=== PATIENT | male | born 1945 | race Hispanic/Latino ===

== ENCOUNTER 2017-04-29 12:11 | Emergency (ER) | payer MEDICARE, BC ==
[~2017-04-29] VITALS: Ht 154.4 cm; Wt 80.3 kg
[~2017-04-29 12:11] MED LIST: CHLORZOXAZONE; LANTUS; Z.0.LISINOPRIL20 MG PO; Z.0.LOVASTATIN40 MG PO; Z.0.SERTRALINE HCL10 PO; Z.1.HYDROCODON-ACE1 PO; Z.1.METFORMIN HCL100 PO
== END 2017-04-29 17:26 | disposition home or self-care (01) ==
LOC: ER 12:17
DX: Z48.01 Encounter for change or removal of surgical wound dressing (principal); M79.671 Pain in right foot; E11.65 Type 2 diabetes mellitus with hyperglycemia
CPT/HCPCS: 99282

== ENCOUNTER 2017-08-18 12:32 | Inpatient (IN) | payer MEDICARE, BC ==
[~2017-08-18] VITALS: Ht 154.4 cm; Wt 80.0 kg
--- OUTSIDE RECORDS SUMMARY | 2017-08-18 12:35 | XMS REPORT ---
Author Author [facility] Address Unknown Phone Unavailable Care Team Providers Care Printing Gray Cloth Tender Name Role Phone ROSALIO HENLEY Unavailable Unavailable Problems This patient has no known problems. Allergies, Adverse Reactions, Alerts This patient has no known allergies or adverse reactions. Medications This patient has no known medications. Results Test Description Test Time Test Comments Text Results Atomic Results Result Comments IR CONSULT [place] [address] Patient Name: AMAURY DE LEON MR #: [id number] : 1945 Age/Sex: 71/M Req # : [id number] Adm Physician: ROSALIO HENLEY MD Ordered by: SEBASTIAN SIDDIQI, JOSEMANUEL SIDDIQI Report #: [id number] Location: [facility] Room/Bed: [facility] _ Procedure: [id number] DX/IR CONSULT Exam Date: Exam Time: REPORT STATUS: Signed Tunneled Dialysis Catheter Placement March 23, 2017 Pre-Procedure Diagnosis: End-Stage Renal Disease Post- procedure Diagnosis:End-Stage Renal Disease Farm Mortgage Agent: Aparna Mariscal Alarm Mechanic: None Sedation: Moderate sedation was provided with intravenous fentanyl and Versed. Heart rate, rhythm and oxygen saturation were monitored and real-time by a dedicated interventional radiology nurse under my direct supervision. Blood pressure was monitored in 5 minute increments. 1% lidocaine was used for local anesthesia. Total sedation time: 30 minutes Radiation Dose: 441.7 cGycm2 (Dose Area Product) Fluoroscopy time: 1.8 minutes Estimate blood loss: <5 mL Blood administered: None Complications : None Implants/Grafts: 14.5 Persian 19 cm cuffed tunneled dialysis catheter Specimen: None Procedure: Informed consent was obtained and the patient positioned supine in the fluoroscopy suite. A timeout was performed, followed by preliminary ultrasound of the right internal jugular vein (see findings below). The right neck and chest were prepped and draped in standard fashion. Using real-time ultrasound guidance a 18 gauge vascular needle was used to access the right internal jugular vein. An image was stored in the electronic medical record. A wire was advanced across the right atrium under fluoroscopy and the needle exchanged for a peel-away sheath. A skin incision was made inferior to the clavicle and the catheter tunneled to the access site. The catheter was then deployed through the peel-away sheath and positioned with the tip at the atriocaval junction/right atrium. At the end of the procedure the catheter was flushed, packed with heparin solution, secured to the skin and a sterile dressing applied. The patient tolerated the procedure well and without immediate complication. Findings: Patent right internal jugular vein as demonstrated by normal ultrasound compressibility. Impression: Successful placement of a tunneled right internal jugular vein dialysis catheter using ultrasound and fluoroscopic guidance under moderate sedation. This report was generated with voice-recognition technology. Errors in technical writing lead/mgr can occur. Please interpret accordingly and contact a radiologist if there are any questions regarding the report. Signed by: Dr. Garrick Mariscal M.D. on 03/26/2017 7: 23 AM Dictated By: GARRICK MARISCAL MD 2 Transcribed By: HO on 03/26/17722 COPY TO: JOSEMANUEL CORTES SPECIAL PROCEDURE IN ELECTRIC SIGN WIRER [place] [address] Patient Name: AMAURY DE LEON MR #: [id number] : 1945 Age/Sex: 71/M Req #: [id number] Adm Physician: ROSALIO HENLEY MD Ordered by: JOSEMANUEL CORTES MD, MD Report #: [id number] Location: MED/SURG3 Room/Bed: [facility] Procedure: [id number] IR/SPECIAL PROCEDURE IN ELECTRIC SIGN WIRER Exam Date: Exam Time: REPORT STATUS: Signed Tunneled Dialysis Catheter Placement March 23, 2017 Pre- Procedure Diagnosis: End-Stage Renal Disease Post-procedure Diagnosis:End- Stage Renal Disease Farm Mortgage Agent: Aparna Mariscal Alarm Mechanic: None Sedation: Moderate sedation was provided with intravenous fentanyl and Versed. Heart rate, rhythm and oxygen saturation were monitored and real-time by a dedicated interventional radiology nurse under my direct supervision. Blood pressure was monitored in 5 minute increments. 1% lidocaine was used for local anesthesia. Total sedation time: 30 minutes Radiation Dose: 441.7 cGycm2 (Dose Area Product) Fluoroscopy time: 1.8 minutes Estimate blood loss: <5 mL Blood administered: None Complications: None Implants/Grafts: 14.5 Persian 19 cm cuffed tunneled dialysis catheter Specimen: None Procedure: Informed consent was obtained and the patient positioned supine in the fluoroscopy suite. A timeout was performed, followed by preliminary ultrasound of the right internal jugular vein (see findings below). The right neck and chest were prepped and draped in standard fashion. Using real- time ultrasound guidance a 18 gauge vascular needle was used to access the right internal jugular vein. An image was stored in the electronic medical record. A wire was advanced across the right atrium under fluoroscopy and the needle exchanged for a peel-away sheath. A skin incision was made inferior to the clavicle and the catheter tunneled to the access site. The catheter was then deployed through the peel-away sheath and positioned with the tip at the atriocaval junction/right atrium. At the end of the procedure the catheter was flushed, packed with heparin solution, secured to the skin and a sterile dressing applied. The patient tolerated the procedure well and without immediate complication. Findings: Patent right internal jugular vein as demonstrated by normal ultrasound compressibility. Impression: Successful placement of a tunneled right internal jugular vein dialysis catheter using ultrasound and fluoroscopic guidance under moderate sedation. This report was generated with voice-recognition technology. Errors in technical writing lead/mgr can occur. Please interpret accordingly and contact a radiologist if there are any questions regarding the report. Signed by: Dr. Garrick Mariscal M.D. on 03/26/2017 7:23 AM Dictated By: GARRICK MARISCAL MD 2 Transcribed By: HO on 03/26/17722 COPY TO: CORTESJOSEMANUEL FOOT RIGHT COMPLETE [place] [address] Patient Name: AMAURY DE LEON MR #: [id number] : 1945 Age/Sex: 71/M Req #: [id number] Adm Physician: ROSALIO HENLEY MD Ordered by: ALIA FENTON DPM Report #: [id number] Location: [facility]/SURG3 Room/Bed: [facility] Procedure: [id number] DX/FOOT RIGHT COMPLETE Exam Date: Exam Time: 1015 REPORT STATUS: Signed PROCEDURE: X-RAY RIGHT FOOT, COMPLETE COMPARISON: None. INDICATIONS: FOOT INFECTION 4TH AND 5TH DIGIT FINDINGS: No acute, displaced fracture or dislocation. No cortical erosive or destructive changes of the bones of the fourth or fifth digit. Joint spaces are relatively well-maintained. Degenerative plantar and posterior calcaneal spur. Atherosclerotic vascular calcifications. CONCLUSION: No acute osseous abnormality. No plain radiographic evidence of osteomyelitis involving the fourth or fifth digits. If there is strong clinical concern, three-phase nuclear medicine bone scan or MRI of the forefoot with and without contrast may be obtained for more sensitive evaluation for osteomyelitis. Dictated by: Dawood Ledesma M.D. on 03/20/2017 at 10:51 Electronically approved by: Dawood Ledesma M.D. on 03/20/2017 at 10:51 Dictated By: DAWOOD LEDESMA MD 1051 Transcribed By: NICO on 03/20/17 1051 COPY TO: ALIA FENTON DPM US RENAL RETROPERITONEAL COMP [place] [address] Patient Name: AMAURY DE LEON MR #: [id number] : 1945 Age/Sex: 71/M Req #: [id number] Adm Physician: ROSALIO HENLEY MD Ordered by: SEBASTIAN SIDDIQI, JOSEMANUEL SIDDIQI Report #: [id number] Location: [place] [address] Room/Bed: [facility] Procedure: [id number] US/US RENAL RETROPERITONEAL COMP Exam Date: 03/20/17 Exam Time: 1051 REPORT STATUS: Signed PROCEDURE: US RETROPERITONEAL ( KIDNEY ). COMPARISON: None. INDICATIONS: SHARONA TECHNIQUE: Irwin-scale and color sonographic images of the bilateral kidneys and bladder where obtained in transverse and longitudinal planes. FINDINGS: RIGHT KIDNEY: 11.3 cm in length , cortical thickness 1.8 cm Cysts: None Solid masses: None Stones: None Hydronephrosis: None Echogenicity: Normal renal cortical echogenicity. LEFT KIDNEY: 9.9 cm in length, cortical thickness 1.8 cm. Cysts: None Solid masses: None Stones: None Hydronephrosis: None Echogenicity: Normal renal cortical echogenicity. Bladder: Unremarkable. Right and left ureteral jets are identified. Prostate: 2.2 x 3.1 x 3.7 cm, estimated volume 13 cc CONCLUSION: Unremarkable sonographic appearance of the kidneys. Dictated by: Dawood Ledesma M.D. on 03/20/2017 at 12:12 Electronically approved by: Dawood Ledesma M.D. on 03/20/2017 at 12:12 Dictated By : DAWOOD LEDESMA MD 1212 Transcribed By: INFCE on 03/20/17 1212 COPY TO: JOSEMANUEL CORTES VENOUS DUPLEX LWR B/L [place] [address] Patient Name : AMAURY DE LEON MR #: [id number] : 1945 Age/Sex: 71/M Adm Physician : ROSALIO HENLEY MD Admit Date : 03/19/17 Location : [place] [address] Room/Bed : [facility] REPORT: Cardiology Report DATE OF STUDY: DOPPLER SCAN OF LOWER EXTREMITY VEINS The lower extremity veins were interrogated using the duplex scanning method. The veins are compressible. There were no definite deep venous thrombosis. CONCLUSIONS: No definite deep venous thrombosis in the lower extremity veins bilaterally. DD : 03/20/2017 09:00 Job#: [id number] RI cc: GUERDA ROQUE MD Signature Date Dictated By: JOJO BONE MD Transcribed By: SMEDS on 03/20/17 <Electronically signed by JOJO BONE MD><<Signature on File>>03/26/17 1014 COPY TO: CHEST 2 VIEWS [place] [address] Patient Name: AMAURY DE LEON MR #: [id number] : 1945 Age/Sex: 71/M Req # : [id number] Adm Physician: Ordered by: GUERDA ROQUE MD Report #: [id number] Location: ER Room/Bed: Procedure: [id number] DX/CHEST 2 VIEWS Exam Date: 03/19/17 Exam Time: 1400 REPORT STATUS: Signed PROCEDURE: CHEST 2 VIEWS TECHNIQUE: AP , PA and lateral chest INDICATION: Infection of toes; cough COMPARISON: None. FINDINGS: Lungs are clear and symmetrically inflated. No pleural effusions. Normal heart size and mediastinal contour. Intact skeleton. Low cervical fusion. Bilateral glenohumeral degenerative changes. CONCLUSION: No acute abnormality. Dictated by: Garrick Mariscal M.D. on 03/19/2017 at 15:05 Electronically approved by: Garrick Mariscal M.D. on 03/19/2017 at 15:05 Dictated By: GARRICK MARISCAL MD 1505 Transcribed By: NICO on 03/19/17 1505 COPY TO: GUERDA ROQUE MD [place] [address] Patient Name: AMAURY DE LEON MR #: [id number] : 1945 Age/Sex: 71/M Req #: [id number] Adm Physician: Ordered by: GUERDA ROQUE MD Report #: [id number] Location: ER Room/Bed: Procedure: [id number] DX/FOOT RIGHT COMPLETE Exam Date: 03/19/17 Exam Time: 1340 REPORT STATUS: Signed PROCEDURE: FOOT RIGHT COMPLETE TECHNIQUE: AP, lateral and oblique views right foot INDICATION: Infected third, fourth and fifth toes COMPARISON: None. FINDINGS: The right foot is intact and in anatomic alignment. Joint spaces are maintained. No definite focal periosteal reaction or erosion. The subcutaneous emphysema or foreign body. Diffuse regional arteriosclerosis. CONCLUSION: 1. No evidence of osteomyelitis. 2. Diffuse arteriosclerosis. Dictated by: Garrick Mariscal M.D. on 2016 at 15:06 Electronically approved by: Garrick Mariscal M.D. on at 15:06 Dictated By: GARRICK MARISCAL MD 1506 Transcribed By: NICO on 03/19/17 1506 COPY TO: GUERDA ROQUE MD
[2017-08-18] MEDS ORDERED: MORPHINE SULFATE 4 MG/ML SYR IV STA (13:05)
[2017-08-18] MEDS ORDERED: ONDANSETRON HCL 4 MG ORAL DISINTEGRATING TAB PO STA (13:05)
[2017-08-18] MEDS ORDERED: PIPER-TAZ 3.375 GM 50 ML IV STA (13:05)
[2017-08-18 13:43] LABS: BASOPHILS # (AUTO) 0.1 (0.0-0.1); BASOPHILS % 0.7 % (0.0-1.0); EOSINOPHILS # (AUTO) 0.5 (0.0-0.4); EOSINOPHILS % 6.8 % (0.0-6.0); HEMATOCRIT 26.5 % (38.2-49.6); HEMOGLOBIN 8.7 g/dL (14.0-18.0); LYMPHOCYTES # (AUTO) 1.3 (1.0-3.2); LYMPHOCYTES % 17.4 % (18.0-39.1); MEAN CORPUSCULAR HEMOGLOBIN 27.1 pg (28-32); MEAN CORPUSCULAR HGB CONC 32.8 g/dL (31-35); MEAN CORPUSCULAR VOLUME 82.6 fL (81-99); MONOCYTES # (AUTO) 0.6 (0.2-0.8); MONOCYTES % 8.7 % (4.4-11.3); NEUTROPHILS # (AUTO) 4.9 (2.1-6.9); NEUTROPHILS % 66.1 % (38.7-80.0); PLATELET COUNT 347 x10e3/uL (140-360); RED BLOOD COUNT 3.21 x10e6/uL (4.3-5.7); RED CELL DISTRIBUTION WIDTH 13.4 % (11.7-14.4)
[2017-08-18 13:53] LABS: INR 1.09; PROTHROMBIN TIME 13.3 seconds (11.9-14.5)
--- NOTE | 2017-08-18 13:56 | Diagnostic Imaging Report ---
Left foot - 3 views HISTORY: Pain. COMPARISON: None available. FINDINGS: Bones: No acute displaced fracture. No periosteal changes. No expansile lytic or sclerotic lesion. Joints: The joint spaces are well-maintained. No dislocation. Soft tissues: Soft tissue swelling of the left first digit. No subcutaneous air. Atherosclerotic calcifications. IMPRESSION: Soft tissue swelling of the left first digit, without evidence of osteomyelitis. Signed by: Dr. Ankit Thornton M.D. on 08/18/2017 1:52 PM
[2017-08-18 14:00] LABS: ALBUMIN 3.1 g/dL (3.5-5.0); ALBUMIN/GLOBULIN RATIO 0.7 (0.8-2.0); ALKALINE PHOSPHATASE 92 IU/L (40-150); ANION GAP 18.5 mmol/L (8-16); BLOOD UREA NITROGEN 60 mg/dL (7-26); BUN/CREATININE RATIO 8 (6-25); CALCIUM 8.6 mg/dL (8.4-10.2); CARBON DIOXIDE 18 mmol/L (22-29); CHLORIDE 102 mmol/L (98-107); CREATININE, SERUM 7.27 mg/dL (0.72-1.25); EST GLOMERULAR FILTRATION RATE 7 ML/MIN (60-); GLUCOSE 191 mg/dL (74-118); POTASSIUM 4.5 mmol/L (3.5-5.1); SODIUM 134 mmol/L (136-145)
[2017-08-18] MEDS ORDERED: VANCOMYCIN 1GM/NS 250 ML 250 ML IV STA (14:02)
[2017-08-18 14:15] LABS: ALANINE AMINOTRANSFERASE < 6 IU/L (0-55)
[2017-08-18] MEDS ORDERED: MORPHINE SULFATE 2 MG/ML SYR ONE (14:23)
[2017-08-18] MEDS ORDERED: GABAPENTIN100 MG PO (14:56)
[2017-08-18] MEDS ORDERED: CALCIUM ACETAT667 M1 PO (14:56)
[2017-08-18] MEDS ORDERED: CYCLOBENZAPRINE10 MG PO (14:56)
[2017-08-18] MEDS ORDERED: TAMSULOSIN HCL0.4 MG PO (14:56)
[2017-08-18] MEDS ORDERED: HYDRALAZINE HC100 MG PO (14:56)
[2017-08-18] MEDS ORDERED: HYDROCODON-ACE1 EAC9 (14:56)
[2017-08-18] MEDS ORDERED: ASPIR 8181 MG PO (14:57)
[2017-08-18] MEDS ORDERED: PLAVIX75 MG PO (14:57)
[2017-08-18] MEDS ORDERED: LISINOPRIL10 MG PO (14:58)
[2017-08-18] MEDS ORDERED: HYDROXYZINE HCL25 MG PO (15:01)
[2017-08-18] MEDS ORDERED: ATORVASTATIN CA20 MG PO (15:01)
[2017-08-18] MEDS ORDERED: CLINDAMYCIN HC150 MG PO (15:01)
[2017-08-18] MEDS ORDERED: NATEGLINIDE60 MG PO (15:01)
[2017-08-18] MEDS ORDERED: ONDANSETRON HCL 4 MG ORAL DISINTEGRATING TAB PO PRN (15:30)
[2017-08-18] MEDS ORDERED: DEXTROSE 50% SYRINGE 50 ML IV PRN (15:30)
--- NOTE | 2017-08-18 15:46 | Diagnostic Imaging Report ---
EXAMINATION: Chest, CHEST SINGLE (PORTABLE) INDICATION: Chest pain COMPARISON: Chest 2 views 03/19/2017 FINDINGS: LINES: Left internal jugular tunneled central venous catheter with tip projecting over the expected region of the superior vena cava. Heart: Normal cardiac silhouette. Vascular: The pulmonary vasculature is within normal limits. Atherosclerotic calcifications of the aortic arch. Mediastinum: No mediastinal, hilar, or axillary mass or lymphadenopathy. Lungs: No parenchymal mass. No focal consolidation. Pleura: No pleural effusion. No pneumothorax. Bones: No acute osseous abnormality. Degenerative changes of the thoracic spine. Anterior cervical spine fusion hardware. Soft tissues: Normal. Impression: No acute radiographic abnormality. Signed by: Dr. Ankit Thornton M.D. on 08/18/2017 3:42 PM
[2017-08-18] MEDS: FAMOTIDINE 20 MG/2 ML VIAL IV SCH (15:47)
[2017-08-18] MEDS: INSULIN REGULAR, HUMAN 100 UNIT/1 ML 3ML VIAL SQ SCH ×2 (16:47→21:00)
[2017-08-18 16:54] LABS: CREATINE KINASE MB 1.4 ng/mL (0-5.0)
[2017-08-18] MEDS: MORPHINE SULFATE 2 MG/ML SYR IV PRN (22:12)
[2017-08-18] MEDS: LISINOPRIL 10 MG TAB PO SCH (23:03)
[2017-08-18] MEDS: HYDRALAZINE HCL 100 MG TABLET PO SCH (23:03)
[2017-08-18 23:21] VITALS: BP 190/97
[2017-08-19] VITALS (9 sets, daily range): BP systolic 119–198; BP diastolic 55–83
[2017-08-19 02:09] LABS: CREATINE KINASE MB 1.4 ng/mL (0-5.0)
[2017-08-19] MEDS: FAMOTIDINE 20 MG/2 ML VIAL IV SCH ×2 (03:37→16:00)
[2017-08-19 07:49] LABS: BASOPHILS % 0.6 % (0.0-1.0); EOSINOPHILS # (AUTO) 0.6 (0.0-0.4); EOSINOPHILS % 8.4 % (0.0-6.0); HEMATOCRIT 28.1 % (38.2-49.6); HEMOGLOBIN 8.8 g/dL (14.0-18.0); LYMPHOCYTES # (AUTO) 0.8 (1.0-3.2); LYMPHOCYTES % 11.2 % (18.0-39.1); MEAN CORPUSCULAR HEMOGLOBIN 26.3 pg (28-32); MEAN CORPUSCULAR HGB CONC 31.3 g/dL (31-35); MEAN CORPUSCULAR VOLUME 84.1 fL (81-99); MONOCYTES # (AUTO) 0.5 (0.2-0.8); MONOCYTES % 7.6 % (4.4-11.3); NEUTROPHILS # (AUTO) 4.8 (2.1-6.9); NEUTROPHILS % 71.9 % (38.7-80.0); PLATELET COUNT 155 x10e3/uL (140-360); RED BLOOD COUNT 3.34 x10e6/uL (4.3-5.7); RED CELL DISTRIBUTION WIDTH 13.2 % (11.7-14.4)
[2017-08-19] MEDS: MORPHINE SULFATE 2 MG/ML SYR IV PRN ×2 (07:54→17:57)
[2017-08-19] MEDS: HYDRALAZINE HCL 100 MG TABLET PO SCH ×2 (08:09→16:00)
[2017-08-19] MEDS: LISINOPRIL 10 MG TAB PO SCH (08:09)
[2017-08-19 08:23] LABS: ALBUMIN 2.9 g/dL (3.5-5.0); ALBUMIN/GLOBULIN RATIO 0.6 (0.8-2.0); ALKALINE PHOSPHATASE 84 IU/L (40-150); ANION GAP 15.9 mmol/L (8-16); BLOOD UREA NITROGEN 64 mg/dL (7-26); BUN/CREATININE RATIO 9 (6-25); CALCIUM 8.4 mg/dL (8.4-10.2); CARBON DIOXIDE 19 mmol/L (22-29); CHLORIDE 107 mmol/L (98-107); CHOL/HDL RATIO 3.7 (3.9-4.7); CHOLESTEROL 129 MD/DL (0-199); CREATININE, SERUM 7.07 mg/dL (0.72-1.25); EST GLOMERULAR FILTRATION RATE 8 ML/MIN (60-); GLUCOSE 142 mg/dL (74-118); HDL CHOLESTEROL 35 MG/DL (40-60); LDL CHOLESTEROL 69 MG/DL (60-130); POTASSIUM 4.9 mmol/L (3.5-5.1); SODIUM 137 mmol/L (136-145); TRIGLYCERIDES 127 MG/DL (0-149)
[2017-08-19 08:32] LABS: ALANINE AMINOTRANSFERASE < 6 IU/L (0-55)
[2017-08-19 09:10] LABS: CREATINE KINASE MB 1.3 ng/mL (0-5.0)
[2017-08-19] MEDS: INSULIN REGULAR, HUMAN 100 UNIT/1 ML 3ML VIAL SQ SCH ×4 (09:17→21:15)
[2017-08-19] MEDS ORDERED: SODIUM CHLORIDE 0.9% 1000ML 2,000 ML ONE (09:39)
[2017-08-19] MEDS ORDERED: SODIUM CHLORIDE 0.9% 1000ML 2,000 ML IV PRN (09:45)
[2017-08-19] MEDS ORDERED: HEPARIN SOD (PORCINE) 1000 UNIT/ML SDV IV PRN (09:45)
[2017-08-19] MEDS ORDERED: SODIUM CHLORIDE 0.9% 1000ML 1,000 ML ONE (11:06)
[2017-08-19] MEDS: ALTEPLASE RECOMBINANT 2 MG/2 ML VIAL IV PRN ×2 (11:07→11:09)
[2017-08-19] MEDS: HYDROXYZINE HCL 25 MG TAB PO SCH ×3 (12:53→21:57)
--- NOTE | 2017-08-19 13:46 | History and Physical ---
PRIMARY CARE PHYSICIAN: Dr. Lennon. CHIEF COMPLAINT: Left great toe color changes and pain. HISTORY OF PRESENT ILLNESS: This is a 72-year-old man with a history of diabetic foot ulcer, status post right TMA, now developing color changes of the left great toe. This has been ongoing for a month now with increasing pain and color changes of black. Therefore, he came to the hospital. Here he is found to have gangrene in the left great toe. He is admitted for further evaluation and management. PAST MEDICAL HISTORY: Diabetes mellitus type 2, diabetic foot ulcer, status post right TMA, hypertension, peripheral vascular disease, end-stage renal disease on hemodialysis, right foot cellulitis. PAST SURGICAL HISTORY: Right TMA. HD access. ALLERGIES: PER ELECTRONIC MEDICAL RECORDS. FAMILY HISTORY, SOCIAL HISTORY: The patient denies any alcohol, illicits or cigarettes. MEDICATIONS: Per electronic medical records. REVIEW OF SYSTEMS: Denies any dizziness or chest pain. PHYSICAL EXAMINATION VITAL SIGNS: Reviewed. GENERAL APPEARANCE: A tired-appearing man resting in the bed. HEENT: Anicteric. Pupils responsive to light. No oral lesions. CARDIOVASCULAR: Normal S1 and S2. No murmurs audible. LUNGS: Moderate breath sounds. CHEST: He has HD access on the left chest. ABDOMEN: Soft and nontender. Nondistended. EXTREMITIES: Right foot with TMA, well healed. His left foot with great toe black. Dorsalis pedis pulse is 1+ bilaterally. SKIN: Dry. PSYCHIATRIC: Flat affect. LABS: Reviewed. MEDICATIONS: Reviewed. ASSESSMENT AND PLAN: This is a 72-year-old man. 1. Left great toe gangrene. History does not suggest osteomyelitis. He does have a history of diabetic foot ulcer in the past. We consulted booth cleaner, Dr. Parra. Treated with antibiotics and local wound care. He will likely need an amputation at this time. 2. Metabolic acidosis. Rehydrate and reassess. 3. End-stage renal disease on hemodialysis. Started on dialysis this morning. 4. Normocytic anemia. Will follow. 5. Diabetes mellitus, type 2. Obtain hemoglobin A1c and lipid panel. 6. Hypertension. Restart home medications. 7. Benign prostatic hypertrophy. Currently on Flomax. 8. Diabetic neuropathy. Continue gabapentin. 9. Hyperlipidemia. Continue statin. 10. Prophylaxis: Will use heparin and Pepcid. DISPOSITION: Cardiovascular consultation and podiatry consultation. Job#: [id number] GH
[2017-08-19] MEDS: HYDROCODONE/APAP 10MG-325MG TAB PO SCH (16:00)
[2017-08-19] MEDS: VANCOMYCIN 1GM/NS 250 ML 250 ML IV SCH (16:00)
[2017-08-19] MEDS: CYCLOBENZAPRINE HCL 10 MG TAB PO SCH (16:00)
--- NOTE | 2017-08-19 17:35 | Consultation ---
DATE OF CONSULTATION: August 19, 2017 REQUESTING PHYSICIAN: Dr. Gabino Pham. REASON FOR CONSULTATION: Peripheral arterial disease. This is a 72-year-old man with history of diabetes mellitus type 2, hypertension, peripheral arterial disease, end-stage renal disease on hemodialysis and history of diabetic foot ulcer on the right, status post TMA, who presented with gangrenous changes of the left great toe for the last month. He denies any chest pain, shortness of breath, palpitations, orthopnea, PND or lightheadedness. Of note, he was supposed to follow up for stage revascularization of the left SFA and popliteal vessels after his last admission, which he did not have done. REVIEW OF SYSTEMS: Negative except as per HPI. PAST MEDICAL HISTORY: End-stage renal disease on hemodialysis, diabetes mellitus type 2, peripheral arterial disease, status post right TMA, hypertension, hyperlipidemia. PAST SURGICAL HISTORY: Right TMA. Hemodialysis access. ALLERGIES: PLEASE SEE EMR. MEDICATIONS: Please see medication list. SOCIAL HISTORY: No tobacco, alcohol or drugs. FAMILY HISTORY: Noncontributory. PHYSICAL EXAMINATION VITAL SIGNS: Temperature 95.4 degrees, pulse 59, respiratory rate 18, blood pressure 187/67, oxygen saturation 100% on room air. GENERAL: A well-nourished, well-developed man in no acute distress. HEENT: Normocephalic, atraumatic. Pupils are equal. No scleral icterus. NECK: Supple. No thyromegaly or cervical lymphadenopathy. No carotid bruits. LUNGS: Clear to auscultation bilaterally. No wheezes or crackles. CARDIOVASCULAR: Normal rate, regular rhythm. No murmurs. Normal S1 and S2. ABDOMEN: Soft and nontender. EXTREMITIES: No edema. Right foot status post TMA. The left foot with gangrene of the left great toe. NEUROLOGIC: Nonfocal exam. LABORATORY DATA: WBC 6.68, hemoglobin 8.8, hematocrit 28.1, platelets 155,000, sodium 137, potassium 4.9, chloride 107, CO2 of 19, BUN 64, creatinine 7.07, troponin 0.002. Triglycerides 127. Cholesterol 129. LDL 69, HDL 35. IMPRESSION 1. Gangrene of the left great toe. 2. Peripheral arterial disease, pending staged revascularization of the left superficial femoral artery and popliteal vessels. 3. Diabetes mellitus. 4. Hypertension. 5. End-stage renal disease on hemodialysis. 6. Hyperlipidemia. RECOMMENDATIONS: Antibiotics per primary service. Wound care per podiatry. Plan to proceed with peripheral angiogram and revascularization of the left lower extremity Sunday. In the meantime, continue current cardiac medications. Thank you for this consult. We will continue to follow. Job#: [id number] GH
--- NOTE | 2017-08-19 18:00 | Consultation ---
DATE OF CONSULTATION: NEPHROLOGY CONSULTATION REASON FOR CONSULT: End-stage renal disease, fluid overload, uremia, anemia of chronic disease. HISTORY OF PRESENT ILLNESS: Mr. Pompa is a 72-year-old male with the following problem list: 1. End-stage renal disease. 2. Atherosclerotic cardiovascular disease. 3. Peripheral arterial disease. 4. Diabetes mellitus type 2. 5. Status post transmetatarsal amputation of the right foot. 6. Presenting with wet gangrene of the 1st toe with cellulitis. 7. History of hypertension. 8. Anemia of chronic disease. 9. Secondary hyperparathyroidism. The patient was in severe pain. He skipped his dialysis and presented to the emergency room. He has a left tunneled dialysis catheter and is in the course of making arrangements for permanent access placement but has not seen a surgeon yet. FAMILY HISTORY: Noncontributory. SOCIAL HISTORY: Denies current tobacco, alcohol, illicit or recreational drug use. MEDICATIONS: Per medication list. ALLERGIES: PER ALLERGY LIST. REVIEW OF SYSTEMS: He denied any fever or chills, masses, rashes, shortness of breath, chest pain, cough, abdominal pain, nausea, vomiting, diarrhea or constipation. His appetite is fair. He remains with residual kidney function. PHYSICAL FINDINGS GENERAL: Alert, oriented, in no acute distress. VITAL SIGNS: Blood pressure 156/79, heart rate 63 per minute, T-max afebrile 96.2 degrees Fahrenheit. SHENT: Fundi not visualized. Conjunctivae anicteric. Head normocephalic, atraumatic. NECK: Supple. No JVD, no lymphadenopathy. LUNGS: Bilaterally clear to auscultation. HEART: Normal heart sounds. No additional sounds. ABDOMEN: Soft, nontender. No organomegaly. EXTREMITIES: No cyanosis, clubbing or edema. He has wet gangrene of the 1st toe and a transmetatarsal amputation on the contralateral foot. LABORATORY FINDINGS: Noted and reviewed. ASSESSMENT AND PLAN 1. End-stage renal disease. The patient is seen and is receiving dialysis per orders. Ultrafiltration as tolerated. 2. Fluid overload, mild, due to missed dialysis. We are attempting optimal ultrafiltration. 3. Anemia of chronic disease. The patient will be placed on erythropoietin-stimulating agents 3 times a week with every dialysis. 4. Secondary hyperparathyroidism. The patient will be continued on phosphate binders and vitamin D3 analogs per his outpatient protocol. 5. Dialysis access. The patient has very poor function of his left internal jugular dialysis catheter. He has had an infection on the right, and that catheter was removed and it was replaced with the catheter on the left that has poor function. We have administered tPA, but the catheter remains with poor function of the arterial port; and, therefore, it needs to be exchanged. We will consult Interventional Radiology. 6. Peripheral arterial disease. Further management per primary care. 7. Disposition. I have discussed my evaluation, assessment and plan of care with the patient in all details. All his questions were answered to his satisfaction until he had none. Job#: [id number] MITRA
[2017-08-19] MEDS: HEPARIN SOD (PORCINE) 5,000 UNIT/ML VIAL SC SCH (21:00)
[2017-08-19] MEDS ORDERED: ATORVASTATIN 20 MG TAB PO SCH (21:00)
--- NOTE | 2017-08-19 21:26 | Consultation ---
DATE OF CONSULTATION: August 19, 2017 ATTENDING PHYSICIAN: Dr. Gabino Pham REASON FOR ADMISSION: End-stage renal disease with gangrenous changes noted to the left great toe. HISTORY OF PRESENT ILLNESS: This is a pleasant 72-year-old male who has been seen before, who relates he has had a black toe for approximately more than a month ago, did not seek any medical attention, and presented to the emergency room. He was told by his primary care physician he should seek podiatric evaluation follow up in the office. He relates the gangrenous changes have been present for a month, has been getting worse, is denying any history of fever, chills, nausea or vomiting. PAST MEDICAL HISTORY: Remarkable for end-stage renal disease, peripheral arterial disease, type 2 diabetes with history of hypertension, hypercholesterolemia, and hyperthyroidism. ALLERGIES: PATIENT DENIES. PAST SURGICAL HISTORY: Remarkable for right TMA. CURRENT MEDICATIONS: Noted and listed in the chart including cefepime 1 g IV piggyback daily. SOCIAL HISTORY: Denies any smoking, drinking, or recreational drug use. Stop doing all of them more than 15+ years. Lives with his daughter and son-in-law and grandchild. FAMILY HISTORY: Noncontributory. REVIEW OF SYSTEMS: CARDIAC: Denies any palpitations or arrhythmias. RESPIRATORY: Denies any shortness of breath, productive cough. GASTROINTESTINAL: Denies any diarrhea or constipation. VITAL SIGNS: Afebrile, pulse rate 106, respiration 18, blood pressure 149/83, O2 saturation 100%. LABS: Noted. White blood cell count of 6.6, hemoglobin 8.8, hematocrit 28.1 with a platelet count of 155,000. PODIATRIC PHYSICAL EXAMINATION: Reveals the following: VASCULATURE: Pedal pulses of both the dorsalis pedis and posterior tibial arteries are palpable, but diminished. Skin temperature between warm and cool to touch. NEUROLOGICAL: Reveals a decrease in protective sensation when utilizing [place] 5.07 monofilament wire. Muscle mass is symmetrical. Muscle strength is 3/5 to 4/5 to all muscle groups. DERMATOLOGICAL: Reveals dry gangrenous changes noted to the left great toe little proximal to the proximal interphalangeal joint, has erythema and pain first metatarsophalangeal joint. X-rays reviewed. There is no gas in the tissue. There is a possible indication of osteomyelitis to the distal phalanx. ASSESSMENT: 1. Peripheral arterial disease. 2. Dry gangrene. 3. Capsulitis, first metatarsophalangeal joint with pain with diabetic neuropathy. PLAN: Will continue to let the foot demarcate. Will start diluted wet-to-dry Betadine dressing. Continue IV antibiotics. Continue offloading. Patient will be taken for surgical intervention. Will let the foot demarcate before any surgery is attempted. Will try to salvage as much as the foot as possible. Patient may need amputation of the left great toe with partial resection, first met with possible TMA depending on intraoperative findings. Thank you for allowing me to participate in the care of this patient. Job#: [id number]
[2017-08-19] MEDS: TAMSULOSIN HCL 0.4 MG CAP PO SCH (21:58)
[2017-08-19] MEDS: GABAPENTIN 100 MG CAP PO SCH (21:58)
[2017-08-20] VITALS (7 sets, daily range): BP systolic 104–187; BP diastolic 51–79
[2017-08-20] MEDS: HYDRALAZINE HCL 100 MG TABLET PO SCH ×4 (00:34→20:53)
[2017-08-20] MEDS: FAMOTIDINE 20 MG/2 ML VIAL IV SCH ×2 (03:00→15:28)
[2017-08-20] MEDS: INSULIN REGULAR, HUMAN 100 UNIT/1 ML 3ML VIAL SQ SCH ×4 (07:30→20:53)
--- NOTE | 2017-08-20 08:43 | Progress Note ---
DATE: August 20, 2017 TIME: 8:18 a.m. OVERNIGHT: No events. REVIEW OF SYSTEMS: Denies any chest pain. PHYSICAL EXAMINATION VITAL SIGNS: Reviewed. GENERAL: A tired-appearing man resting in bed. HEENT: Anicteric. Pupils respond to light. No oral lesions. CARDIOVASCULAR: Normal S1 and S2. LUNGS: Moderate breath sounds. ABDOMEN: Soft, nontender and nondistended. EXTREMITIES: No edema or calf tenderness. He has a right foot with TMA well-healed. He has a left great toe which is black. He has 1+ dorsalis pedis pulse. SKIN: Dry. PSYCHIATRIC: Flat affect. MUSCULOSKELETAL: He has a hemodialysis access, left chest. LABS: Reviewed. MEDICATIONS: Reviewed. ASSESSMENT: A 72-year-old man with: 1. Left foot great toe gangrene. 2. Metabolic acidosis. 3. End-stage renal disease, on hemodialysis. 4. Normocytic anemia. 5. Diabetes mellitus, type 2: Hemoglobin A1c 8.3, LDL 69 and triglycerides 127. 6. Hypertension. 7. BPH. 8. Diabetic neuropathy. 9. Hyperlipidemia. PLAN 1. Continue IV antibiotics. 2. Angiogram planned for tomorrow. 3. Continue pain control. 4. Follow podiatry recommendations. 5. Follow up cultures. Job#: [id number] KESHA
[2017-08-20] MEDS: HYDROXYZINE HCL 25 MG TAB PO SCH ×4 (09:00→20:53)
[2017-08-20] MEDS: HYDROCODONE/APAP 10MG-325MG TAB PO SCH ×2 (09:00→17:29)
[2017-08-20] MEDS: MORPHINE SULFATE 2 MG/ML SYR IV PRN ×2 (09:32→14:42)
[2017-08-20] MEDS: CEFEPIME HCL 1 GM VIAL IV SCH (09:32)
[2017-08-20] MEDS: HEPARIN SOD (PORCINE) 5,000 UNIT/ML VIAL SC SCH ×2 (09:32→20:53)
[2017-08-20] MEDS: CYCLOBENZAPRINE HCL 10 MG TAB PO SCH ×2 (11:36→17:29)
[2017-08-20] MEDS: GABAPENTIN 100 MG CAP PO SCH ×2 (11:36→20:53)
[2017-08-20] MEDS: LISINOPRIL 20 MG TAB PO SCH (11:36)
[2017-08-20] MEDS: SERTRALINE HCL 100 MG TAB PO SCH (11:36)
--- NOTE | 2017-08-20 14:00 | Progress Note ---
DATE: August 20, 2017 SUBJECTIVE: Patient feeling a little bit better, still having pain to the left lower extremity. OBJECTIVE VITAL SIGNS: Afebrile, pulse rate 89, respiration 18, blood pressure 126/58, O2 saturation 99%. EXTREMITIES: Has gangrenous changes to the left great toe. Has pain around the 1st metatarsophalangeal joint. Some drainage noted with some foul smell present. Pedal pulses are diminished. ASSESSMENT: Peripheral arterial disease, gangrene with capsulitis/hallux valgus deformity left foot with possible abscess. PLAN: Will continue and start diluted wet-to-dry Betadine-soaked dressings b.i.d. Continue IV antibiotics such as vancomycin and cefepime. Patient will be undergoing an angiogram and a possible angioplasty tomorrow. Patient will be scheduled for surgical intervention on . Will continue local wound care and offloading until then. Job#: [id number] EV
--- NOTE | 2017-08-20 14:35 | Progress Note ---
DATE: August 20, 2017 CARDIOLOGY PROGRESS NOTE SUBJECTIVE: Patient denies chest pain or shortness of breath. He was n.p.o. for dialysis catheter exchange due to poor function. OBJECTIVE VITAL SIGNS: Temperature 96.3 degrees, pulse 89, respiratory rate 18, blood pressure 126/58, oxygen saturation 99% on room air. GENERAL: Awake, alert, in no acute distress. LUNGS: Clear to auscultation bilaterally. No wheezes or crackles. CARDIOVASCULAR: Normal rate, regular rhythm. No murmur. Normal S1 and S2. ABDOMEN: Soft, nontender. EXTREMITIES: No edema. Right foot status post TMA. Left foot with gangrene of the left great toe. CARDIAC MEDICATIONS 1. Lisinopril 20 mg p.o. daily. 2. Hydralazine 50 mg p.o. t.i.d. 3. Atorvastatin 40 mg p.o. nightly. LABS: None today. IMPRESSION 1. Gangrene of the left great toe. 2. Peripheral arterial disease, pending staged revascularization of the left superficial femoral artery and popliteal vessels. 3. Diabetes mellitus. 4. Hypertension. 5. End-stage renal disease, on hemodialysis. 6. Hyperlipidemia. RECOMMENDATIONS: Antibiotics per primary service. Wound care per Podiatry. Peripheral angiogram with revascularization of the left lower extremity tomorrow. In the meantime, continue current cardiac medications. Resume aspirin and Plavix once dialysis catheter has been exchanged. Thank you for this consult. We will continue to follow. Job#: [id number] MITRA
[2017-08-20] MEDS: EPOETIN ALFA 10000 UNIT/ML VIAL SC SCH (14:42)
[2017-08-20] MEDS: ATORVASTATIN 40 MG TAB PO SCH (20:53)
[2017-08-20] MEDS: TAMSULOSIN HCL 0.4 MG CAP PO SCH (20:53)
[2017-08-21] VITALS (18 sets, daily range): BP systolic 123–193; BP diastolic 53–86
[2017-08-21] MEDS: FAMOTIDINE 20 MG/2 ML VIAL IV SCH ×2 (03:08→15:26)
[2017-08-21] MEDS ORDERED: DEXTROSE 5% 1,000 ML IV ONE (07:30)
[2017-08-21] MEDS: INSULIN REGULAR, HUMAN 100 UNIT/1 ML 3ML VIAL SQ SCH ×4 (07:30→21:10)
--- NOTE | 2017-08-21 07:34 | Progress Note ---
DATE: August 21, 2017 TIME: 7:10 a.m. OVERNIGHT: No events. REVIEW OF SYSTEMS: Denies any chest pain. VITAL SIGNS: Reviewed. PHYSICAL EXAMINATION GENERAL: A tired-appearing man resting in bed. HEENT: Anicteric. CARDIOVASCULAR: Normal S1 and S2. LUNGS: Moderate breath sounds. ABDOMEN: Soft, nontender and nondistended. EXTREMITIES: He has a right foot with transmetatarsal amputation well healed. He has a left foot with great toe black. He has reduced pulses. SKIN: Dry. PSYCHIATRIC: Flat affect. MUSCULOSKELETAL: Hemodialysis access, left chest. LABS: Reviewed. MEDICATIONS: Reviewed. ASSESSMENT: A 72-year-old man. 1. Left foot great toe gangrene. 2. Metabolic acidosis. 3. End-stage renal disease, on hemodialysis. 4. Normocytic anemia. 5. Diabetes mellitus, type 2. Hemoglobin A1c 8.3, LDL 69 and triglycerides 127. 6. Hypertension. 7. BPH. 8. Diabetic neuropathy. 9. Hyperlipidemia. PLAN 1. Angiogram planned for today. 2. Surgery will be planned for . 3. Continue pain control. 4. Continue diabetes control. 5. Titrate antihypertensive medications up. Job#: [id number]
[2017-08-21] MEDS: HYDROXYZINE HCL 25 MG TAB PO SCH ×4 (07:42→21:10)
[2017-08-21] MEDS: CYCLOBENZAPRINE HCL 10 MG TAB PO SCH ×2 (07:42→17:00)
[2017-08-21] MEDS: HYDRALAZINE HCL 100 MG TABLET PO SCH ×3 (07:42→21:10)
[2017-08-21] MEDS: GABAPENTIN 100 MG CAP PO SCH ×2 (07:43→21:10)
[2017-08-21] MEDS: HYDROCODONE/APAP 10MG-325MG TAB PO SCH ×3 (07:43→18:37)
[2017-08-21] MEDS: CEFEPIME HCL 1 GM VIAL IV SCH (08:15)
[2017-08-21] MEDS: LABETALOL HCL 5 MG/ML 20ML VIAL IV PRN ×3 (08:15→18:37)
[2017-08-21] MEDS: HEPARIN SOD (PORCINE) 5,000 UNIT/ML VIAL SC SCH ×2 (08:28→21:10)
[2017-08-21] MEDS ORDERED: MIDAZOLAM HCL 2 MG/2 ML VIAL ONE ×2 (09:43→16:34)
[2017-08-21] MEDS ORDERED: FENTANYL CITRATE/PF 100MCG/2 ML INJ ONE ×2 (09:44→16:34)
[2017-08-21] MEDS ORDERED: HEPARIN SOD (PORCINE) 1000 UNIT/ML 30ML ONE ×2 (10:21→16:37)
[2017-08-21] MEDS ORDERED: MIDAZOLAM HCL 2 MG/2 ML VIAL IV STA (10:32)
[2017-08-21] MEDS ORDERED: FENTANYL CITRATE/PF 100MCG/2 ML INJ IV ONE (10:45)
--- NOTE | 2017-08-21 11:28 | Progress Note ---
DATE: August 21, 2017 CARDIOLOGY PROGRESS NOTE SUBJECTIVE: Patient denies chest pain or shortness of breath. He underwent tunneled dialysis catheter placement today. OBJECTIVE VITAL SIGNS: Temperature 95.9 degrees, pulse 76, respiratory rate 18, blood pressure 168/77, oxygen saturation 97% on room air. GENERAL: Awake, alert, in no acute distress. LUNGS: Clear to auscultation bilaterally. No wheezes or crackles. CARDIOVASCULAR: Normal rate, regular rhythm. No murmur. Normal S1 and S2. ABDOMEN: Soft, nontender. EXTREMITIES: No edema. Status post right TMA. Left foot with gangrene of the left great toe. CARDIAC MEDICATIONS 1. Atorvastatin 40 mg p.o. nightly. 2. Lisinopril 20 mg p.o. daily. 3. Hydralazine 100 mg p.o. t.i.d. LABS: None today. IMPRESSION 1. Gangrene of the left great toe. 2. Peripheral arterial disease, pending staged revascularization of the left superficial femoral artery and popliteal vessels. 3. Diabetes mellitus. 4. Hypertension. 5. End-stage renal disease, on hemodialysis. 6. Hyperlipidemia. RECOMMENDATIONS: Antibiotics per primary service. Wound care per podiatry. Peripheral angiogram with revascularization of the left lower extremity today. In the meantime, continue current cardiac medications. Resume aspirin and Plavix now that dialysis catheter has been exchanged. Thank you for this consult. We will continue to follow. Job#: [id number]
--- NOTE | 2017-08-21 12:45 | Diagnostic Imaging Report ---
Tunneled Dialysis Catheter Exchange 08/21/2017 Pre-Procedure Diagnosis: End-Stage Renal Disease Post-procedure Diagnosis:End-Stage Renal Disease Manager Roofing: Aparna Mariscal Inside Sales Advisor: None Sedation: Moderate sedation was provided with intravenous fentanyl and Versed. Heart rate, rhythm and oxygen saturation were monitored and real-time by a dedicated interventional radiology nurse under my direct supervision. Blood pressure was monitored in 5 minute increments. 1% lidocaine was used for local anesthesia. Total sedation time: Radiation Dose: 858 cGycm2 (Dose Area Product) Fluoroscopy time: 3 minutes Estimate blood loss: <5 mL Blood administered: None Complications: None Implants/Grafts: 16 [place] 28 cm cuffed tunneled dialysis catheter Specimen: None Procedure: Informed consent was obtained and the patient positioned supine in the fluoroscopy suite. A timeout was performed. The left neck and chest were prepped and draped in standard fashion. The catheter cuff was freed using blunt dissection. Using an 18 gauge vascular needle the indwelling dialysis catheter was punctured and removed over a stiff Glidewire. The chest wall was re-sterilized with chlorhexidine and a glove exchange performed. An image was stored in the electronic medical record. The wire was advanced across the right atrium under fluoroscopy. A new 28 cm tip to cuff catheter catheter was advanced over the wire and positioned with the tip at the atriocaval junction/right atrium. Catheter function was confirmed with easy blood aspiration via both the red and blue ports. At the end of the procedure the catheter was flushed, packed with heparin solution, secured to the skin and a sterile dressing applied. The patient tolerated the procedure well and without immediate complication. Findings: The original indwelling catheter was short, with tips in the SVC. This was successfully exchanged for a 28 cm catheter, with good result. Impression: Left tunneled dialysis catheter exchange catheter using and fluoroscopic guidance under moderate sedation. This report was generated with voice-recognition technology. Errors in piper installer can occur. Please interpret accordingly and contact a radiologist if there are any questions regarding the report. Signed by: Dr. Bryant Mariscal M.D. on 08/21/2017 12:42 PM
[2017-08-21] MEDS: MORPHINE SULFATE 2 MG/ML SYR IV PRN ×2 (13:10→21:10)
[2017-08-21] MEDS ORDERED: IOPAMIDOL 300MG/ML 100 ML INFUS..BTL IV ONE (15:57)
[2017-08-21] MEDS ORDERED: HEPARIN SOD/SOD CHLORIDE 2,000 ML ONE (15:57)
[2017-08-21] MEDS ORDERED: LIDOCAINE HCL 2% LOCAL 20 ML VIAL ONE (15:57)
[2017-08-21] MEDS: SERTRALINE HCL 100 MG TAB PO SCH (18:23)
[2017-08-21] MEDS: LISINOPRIL 20 MG TAB PO SCH (18:23)
--- NOTE | 2017-08-21 19:15 | Progress Note ---
DATE: August 21, 2017 PODIATRY PROGRESS NOTE SUBJECTIVE: Patient seen at bedside. Doing better. Relates he had some type of procedure to the left lower extremity to increase his circulation. Denies any history of fever, chills, nausea or vomiting. OBJECTIVE VITAL SIGNS: Afebrile. Pulse rate 66, respiration 18, blood pressure 193/86, O2 saturation 100%. EXTREMITIES: Skin temperature warmer to touch to the left lower extremity. Gangrenous changes in the left great toe with cellulitis up to the metatarsophalangeal joint. Has pain overlying the 1st metatarsophalangeal joint left foot. ASSESSMENT: Gangrene. Cellulitis. Possible abscess with capsulitis/hallux valgus deformity left foot. PLAN: Will continue to let the foot demarcate tomorrow. Patient was instructed that depending on how the foot is looking, patient will be taken for surgical intervention on . Surgery tentatively will look like I\T\D of the left foot, partial amputation or possible complete amputation of the left great toe, partial resection of 1st met with a rotational flap closure. Continue local wound care and continue IV antibiotics and offloading. Job#: [id number] EV
[2017-08-21] MEDS: ATORVASTATIN 40 MG TAB PO SCH (21:10)
[2017-08-21] MEDS: TAMSULOSIN HCL 0.4 MG CAP PO SCH (21:10)
[2017-08-22] VITALS (8 sets, daily range): BP systolic 124–153; BP diastolic 58–91
[2017-08-22] MEDS: FAMOTIDINE 20 MG/2 ML VIAL IV SCH ×2 (03:22→18:45)
--- NOTE | 2017-08-22 06:35 | Operative Report ---
DATE OF PROCEDURE: August 21, 2017 INDICATIONS: Peripheral arterial disease with ulceration of the left lower extremity. PROCEDURES PERFORMED 1. Abdominal aorta catheter placement and abdominal aortogram. 2. Bilateral lower extremity angiograms. 3. Additional third-order catheter placement from the right femoral artery to the left peroneal artery. 4. Third-order catheter placement in the right femoral artery to the left superficial femoral artery. 5. Atherectomy and balloon angioplasty of the left femoral artery. 6. Secondary thrombectomy of the left femoral artery. COMPLICATIONS: None. RECOMMENDATIONS: Dual antiplatelet therapy. Access obtained in the right femoral artery. A 6-Spanish sheath was placed. Abdominal aortogram demonstrated 50% stenosis of the left external iliac artery. Right iliac artery is widely patent. Abdominal aorta had mild disease. Left common femoral artery had a 70% to 80% stenosis with plaque ruptured thrombus, as well as dissection. Femoral arteries could not be visualized. The catheter was then advanced from the right femoral artery to the left superficial femoral artery. Widely patent left femoral and popliteal arteries were noted. Infrapopliteal vessels are not well visualized. The catheter was then advanced from the right femoral artery to the left peroneal artery. Single vessel runoff from the peroneal artery. Complete occlusion of the anterior and posterior tibial artery. The distal peroneal artery supplied the terminal posterior tibial artery for reconstitution. A decision was made to intervene on the left common femoral artery. The patient received intravenous heparin for anticoagulation. The sheath was exchanged to a 45 cm, 6-Spanish sheath. Balloon angioplasty using a 8 x 40 mm Lutonix balloon at 16 atmospheres. Excellent end result with less than 10% stenosis. Large amounts of visible thrombus was noted. Manual aspiration secondary thrombectomy was required. Single vessel runoff to the left foot was noted. Posterior tibial was attempted, but could not be crossed from the long segment chronic total occlusion. Right groin repaired using Perclose. Patient was transferred to the floor in stable condition. Job#: [id number] KESHA
[2017-08-22 07:30] LABS: HEMOGLOBIN 7.9 g/dL (14.0-18.0); MEAN CORPUSCULAR HEMOGLOBIN 26.8 pg (28-32); MEAN CORPUSCULAR HGB CONC 31.6 g/dL (31-35); MEAN CORPUSCULAR VOLUME 84.7 fL (81-99); RED BLOOD COUNT 2.95 x10e6/uL (4.3-5.7); RED CELL DISTRIBUTION WIDTH 13.4 % (11.7-14.4)
[2017-08-22] MEDS: HYDROXYZINE HCL 25 MG TAB PO SCH ×4 (07:43→21:18)
[2017-08-22] MEDS: CEFEPIME HCL 1 GM VIAL IV SCH (07:43)
[2017-08-22] MEDS: GABAPENTIN 100 MG CAP PO SCH ×2 (07:44→21:18)
[2017-08-22] MEDS: HEPARIN SOD (PORCINE) 5,000 UNIT/ML VIAL SC SCH (07:44)
[2017-08-22] MEDS: HYDROCODONE/APAP 10MG-325MG TAB PO SCH ×2 (07:44→18:45)
[2017-08-22] MEDS: SERTRALINE HCL 100 MG TAB PO SCH (07:44)
[2017-08-22] MEDS: CYCLOBENZAPRINE HCL 10 MG TAB PO SCH ×2 (07:44→18:45)
[2017-08-22] MEDS: INSULIN REGULAR, HUMAN 100 UNIT/1 ML 3ML VIAL SQ SCH ×4 (07:48→21:21)
[2017-08-22 07:57] LABS: ANION GAP 18.9 mmol/L (8-16); CALCIUM 8.1 mg/dL (8.4-10.2); CREATININE, SERUM 8.17 mg/dL (0.72-1.25); POTASSIUM 4.9 mmol/L (3.5-5.1)
[2017-08-22 08:07] LABS: RBC MORPHOLOGY COMMENT NORMAL
[2017-08-22 08:08] LABS: ANISOCYTOSIS SLIGHT; HYPOCHROMASIA SLIGHT; PLATELET ESTIMATE ADEQUATE; PLATELET MORPHOLOGY COMMENT FEW LARGE
[2017-08-22] MEDS: HYDRALAZINE HCL 100 MG TABLET PO SCH ×3 (09:00→21:18)
[2017-08-22] MEDS: LISINOPRIL 20 MG TAB PO SCH (09:00)
--- NOTE | 2017-08-22 09:12 | Progress Note ---
DATE: August 22, 2017 SUBJECTIVE: Patient seen at bedside, doing better. Denies any history of fever, chills, nausea or vomiting. Pain to the left lower extremity overlying the 1st MPJ and distal aspect of left great toe. OBJECTIVE: Vitals: Afebrile. Pulse rate 84. Respirations 20. Blood pressure 153/67. O2 saturation 98%. Labs noted. White blood cell count 7.5, hemoglobin 7.9, hematocrit 25.0, platelet count pending. Cellulitis of the left foot overlying the 1st MPJ. Has gangrenous changes noted to the left great toe. Skin temperature warmer to touch since angioplasty was performed yesterday per Dr. Archibald. Has cellulitis with possible abscess proximal to the gangrenous areas. ASSESSMENT: Peripheral artery disease, gangrene, capsulitis with cellulitis. PLAN: Patient will be taken for surgical intervention tomorrow. Will be kept n.p.o. after midnight. CBC with diff pending platelet results. INR will be also ordered. Patient instructed that he will be taken for surgical intervention tomorrow. Surgery will consist of an amputation of the left great toe, I and D of left foot, partial resection of 1st metatarsal with a rotational flap closure. No guarantees can be given. If not responsive, he may need a more proximal amputation. Job#: [id number]
[2017-08-22 09:29] LABS: EOSINOPHILS % (MANUAL) 7 % (0-7); LYMPHOCYTES % (MANUAL) 13 % (19-48); MONOCYTES % (MANUAL) 8 % (3.4-9.0); MYELOCYTES % (MANUAL) 1 % (0-0); NEUTROPHILS % (MANUAL) 70 % (40-74)
[2017-08-22] MEDS ORDERED: ASPIRIN 81 MG ENTERIC COATED PO SCH (10:00)
--- NOTE | 2017-08-22 10:20 | Progress Note ---
DATE: August 22, 2017 CARDIOLOGY PROGRESS NOTE SUBJECTIVE: Patient denies chest pain or shortness of breath. He underwent peripheral angiogram yesterday with 72% to 80% stenosis in the left common femoral artery as well as widely patent left femoral and popliteal arteries and single-vessel runoff via the peroneal with complete occlusion of the anterior and posterior tibial arteries. The patient had drug-eluting balloon angioplasty performed of the left common femoral artery with resulting single-vessel runoff to the foot. OBJECTIVE VITAL SIGNS: Temperature 96.3 degrees, pulse 84, respiratory rate 20, blood pressure 153/67, oxygen saturation 98% on room air. GENERAL: Awake, alert, in no acute distress. LUNGS: Clear to auscultation bilaterally. No wheezes or crackles. CARDIOVASCULAR: Normal rate, regular rhythm. No murmur. Normal S1 and S2. ABDOMEN: Soft, nontender. EXTREMITIES: No edema. Status post right TMA. Left foot with gangrene of the left great toe. CARDIAC MEDICATIONS 1. Hydralazine 100 mg p.o. t.i.d. 2. Atorvastatin 20 mg p.o. nightly. 3. Lisinopril 20 mg p.o. daily. LABS: WBC 7.57, hemoglobin 10.9, hematocrit 25, platelets pending. Sodium 134, potassium 4.9, chloride 100, CO2 20, BUN 53, creatinine 8.17. IMPRESSION 1. Gangrene of the left great toe. 2. Peripheral arterial disease, status post drug-eluting balloon angioplasty of the left common femoral artery with resulting single-vessel runoff to the foot via the peroneal artery. 3. Diabetes mellitus. 4. Hypertension. 5. End-stage renal disease, on hemodialysis. 6. Hyperlipidemia. RECOMMENDATIONS: Antibiotics per primary service. Wound care per podiatry. Patient has undergone revascularization of his left lower extremity. Continue current cardiac medications. Will resume the patient on aspirin and Plavix. Continue current cardiac medications otherwise. Thank you for this consult. We will continue to follow. Job#: [id number]
[2017-08-22] MEDS ORDERED: CLOPIDOGREL BISULFATE 75 MG TAB PO NR (10:30)
[2017-08-22 11:26] LABS: INR 1.15; PROTHROMBIN TIME 13.8 seconds (11.9-14.5)
[2017-08-22 12:17] LABS: PLATELET COUNT 191 x10e3/uL (140-360)
[2017-08-22] MEDS: EPOETIN ALFA 10000 UNIT/ML VIAL SC SCH (12:34)
[2017-08-22] MEDS: MORPHINE SULFATE 2 MG/ML SYR IV PRN (12:52)
[2017-08-22] MEDS: TAMSULOSIN HCL 0.4 MG CAP PO SCH (21:18)
[2017-08-22] MEDS: ATORVASTATIN 40 MG TAB PO SCH (21:18)
[2017-08-23] VITALS (7 sets, daily range): BP systolic 99–154; BP diastolic 51–67
[2017-08-23] MEDS: FAMOTIDINE 20 MG/2 ML VIAL IV SCH (05:47)
[2017-08-23 07:01] LABS: BASOPHILS % 0.5 % (0.0-1.0); EOSINOPHILS # (AUTO) 0.5 (0.0-0.4); EOSINOPHILS % 5.4 % (0.0-6.0); HEMATOCRIT 24.6 % (38.2-49.6); HEMOGLOBIN 7.8 g/dL (14.0-18.0); LYMPHOCYTES # (AUTO) 0.9 (1.0-3.2); LYMPHOCYTES % 11.3 % (18.0-39.1); MEAN CORPUSCULAR HEMOGLOBIN 26.5 pg (28-32); MEAN CORPUSCULAR HGB CONC 31.7 g/dL (31-35); MEAN CORPUSCULAR VOLUME 83.7 fL (81-99); MONOCYTES # (AUTO) 1.1 (0.2-0.8); MONOCYTES % 13.3 % (4.4-11.3); NEUTROPHILS # (AUTO) 5.7 (2.1-6.9); NEUTROPHILS % 68.8 % (38.7-80.0); PLATELET COUNT 177 x10e3/uL (140-360); RED BLOOD COUNT 2.94 x10e6/uL (4.3-5.7); RED CELL DISTRIBUTION WIDTH 13.5 % (11.7-14.4)
[2017-08-23 07:18] LABS: ANION GAP 15.4 mmol/L (8-16); CALCIUM 8.4 mg/dL (8.4-10.2); CREATININE, SERUM 5.52 mg/dL (0.72-1.25); POTASSIUM 5.4 mmol/L (3.5-5.1)
[2017-08-23] MEDS: INSULIN REGULAR, HUMAN 100 UNIT/1 ML 3ML VIAL SQ SCH ×4 (07:19→20:52)
[2017-08-23] MEDS ORDERED: BETAMETHASONE DISODIUM PHOS 6 MG/ML VIAL ONE (07:42)
[2017-08-23] MEDS ORDERED: BUPIVACAINE HCL 0.5% INJ 30 ML VIAL INJ ONE (07:43)
[2017-08-23] MEDS ORDERED: MUPIROCIN 2% OINT 22 GM TUBE ONE (07:50)
[2017-08-23] MEDS ORDERED: BACITRACIN 50,000 UNIT VIAL ONE (07:53)
[2017-08-23] MEDS ORDERED: PHENYLEPHRINE HCL 1% 10 MG/ML VIAL ONE (08:22)
[2017-08-23] MEDS ORDERED: SODIUM CHLORIDE 0.9% 100 ML 100 ML ONE (08:22)
[2017-08-23] MEDS ORDERED: CEFAZOLIN SOD 1 GM VIAL ONE (08:43)
[2017-08-23] MEDS ORDERED: CLOPIDOGREL BISULFATE 75 MG TAB PO SCH (09:00)
--- NOTE | 2017-08-23 09:06 | Progress Note ---
DATE: August 22, 2017 TIME: 8:00 a.m. OVERNIGHT: No events. REVIEW OF SYSTEMS: Denies any dizziness. PHYSICAL EXAMINATION: VITAL SIGNS: Reviewed. GENERAL APPEARANCE: Tired-appearing man resting in bed. HEENT: Anicteric. CARDIOVASCULAR: Normal S1 and S2. LUNGS: Moderate breath sounds. ABDOMEN: Soft, nontender, nondistended. EXTREMITIES: He has left foot with great toe black. SKIN: Dry. PSYCHIATRIC: Normal affect. MUSCULOSKELETAL: Hemodialysis access. LABS: Reviewed. MEDICATIONS: Reviewed. ASSESSMENT: A 72-year-old man. 1. Left foot gangrene, great toe. 2. Metabolic acidosis. 3. End-stage renal disease, on hemodialysis. 4. Normocytic anemia. 5. Diabetes mellitus type 2. Hemoglobin A1c 8.3. 6. Hypertension. 7. Benign prostatic hypertrophy. 8. Diabetic neuropathy. 9. Hyperlipidemia. PLAN: 1. Continue current regimen. 2. Plan for surgery tomorrow. 3. Pain is well controlled. Job#: [id number]
--- NOTE | 2017-08-23 09:07 | Progress Note ---
DATE: August 23, 2017 TIME: 7 a.m. OVERNIGHT: No events. REVIEW OF SYSTEMS: Denies any dizziness. VITAL SIGNS: Reviewed. PHYSICAL EXAMINATION GENERAL: A tired-appearing man resting in bed. HEENT: Anicteric. CARDIOVASCULAR: Normal S1 and S2. LUNGS: Moderate breath sounds. ABDOMEN: Soft, nontender. EXTREMITIES: Right foot has a transmetatarsal amputation well healed. He has a left foot great toe black. SKIN: Dry. PSYCHIATRIC: Flat affect. LABS: Reviewed. MEDICATIONS: Reviewed. ASSESSMENT: This is a 72-year-old man. 1. Left foot great toe gangrene. 2. Peripheral vascular disease, status post atherectomy and balloon angioplasty of the left femoral artery and secondary thrombectomy of the left femoral artery. 3. Metabolic acidosis. 4. End-stage renal disease, on hemodialysis. 5. Normocytic anemia. 6. Diabetes mellitus, type 2. Hemoglobin A1c 8.3, LDL 69 and triglycerides 127. 7. Hypertension. 8. BPH. 9. Diabetic neuropathy. 10. Hyperlipidemia. PLAN 1. Surgery planned for tomorrow. 2. Continue regimen. 3. He is status post angiogram with atherectomy and thrombectomy. 4. Titrate medications. 5. Continue blood pressure and diabetes. Job#: [id number]
[2017-08-23 09:21] LABS: EOSINOPHILS % (MANUAL) 3 % (0-7); LYMPHOCYTES % (MANUAL) 4 % (19-48); METAMYELOCYTES % (MANUAL) 1 % (0-0); MONOCYTES % (MANUAL) 9 % (3.4-9.0); NEUTROPHILS % (MANUAL) 81 % (40-74)
[2017-08-23 09:33] LABS: ANISOCYTOSIS SLIGHT; HYPOCHROMASIA SLIGHT; PLATELET ESTIMATE ADEQUATE; PLATELET MORPHOLOGY COMMENT FEW LARGE; RBC MORPHOLOGY COMMENT NORMAL
[2017-08-23 09:34] LABS: POIKILOCYTOSIS SLIGHT
--- NOTE | 2017-08-23 10:12 | Operative Report ---
DATE OF PROCEDURE: August 23, 2017 PREOPERATIVE DIAGNOSES 1. Abscess, left foot. 2. Gangrene, left great toe. 3. Hallux valgus deformity with capsulitis of 1st metatarsophalangeal joint of left foot. POSTOPERATIVE DIAGNOSES 1. Abscess, left foot. 2. Gangrene, left great toe. 3. Hallux valgus deformity with capsulitis of 1st metatarsophalangeal joint of left foot. Painful hallux valgus deformity left foot. OPERATIVE PROCEDURES 1. Incision and drainage of abscess, left foot. 2. Partial resection/amputation of left great toe. 3. Partial resection of 1st metatarsal, left foot/Silver bunionectomy. 4. Rotational flap closure, left foot. ANESTHESIA: General. HEMOSTASIS: Pneumatic thigh tourniquet at 350 mmHg. PROCEDURE IN DETAIL: Patient was taken into the operating room and placed on the operating room table in the supine position. Following induction of general anesthesia by the anesthesiologist, Webril wraps were placed on the patient's left thigh followed by application of left thigh tourniquet. The left lower extremity was then prepped and draped in the usual aseptic manner. The following procedure was then performed. PROCEDURE #1: Attention was directed to the dorsal aspect of the left great toe where a curvilinear incision was performed proximal to the gangrenous area. The incision was deepened down to bone. Abscess was encountered and cultured for aerobic and anaerobic growth. Approximately, 2 mL of purulent drainage was obtained. At this time, secondary to the infection, attention was directed to the 1st metatarsophalangeal joint where a Silver bunionectomy/partial resection of the 1st metatarsophalangeal joint was performed with a brand new blade and covering the infected area. The incision was deepened via sharp and blunt dissection around the 1st metatarsophalangeal joint where a 6 cm linear incision was performed down to bone. Capsule was then longitudinally incised exposing a dorsomedial exostosis of the 1st metatarsal head. Via the use of an oscillating saw, dorsomedial exostosis was excised from the operation site in toto. All rough and bony edges were rasped smooth via the use of a rotating bur. At this point, the thigh tourniquet was released. Minimal bleeding was achieved. PROCEDURE #3: Partial amputation of the left great toe. Attention was redirected back to the left great toe where another curvilinear incision was performed down to clean viable tissue. The incision was deepened down to bone. Utilizing an oscillating saw, the toe was disarticulated approximately 1 cm distal to the metatarsophalangeal joint. The toe was sent for pathological analysis. All areas were then copiously flushed with sterile antibiotic solution and suctioned. PROCEDURE #4: Rotational flap closure. Attention was redirected back to the dorsal aspect of the right foot where the incision was deepened down to subcutaneous tissue and bone dorsally. A plantar flap was created plantar laterally to allow for proper closure with minimal skin tension. The areas were once again copiously flushed with sterile antibiotic solution. Closure was then obtained utilizing 3-0 Vicryl and 3-0 nylon for subcutaneous tissue, capsule and skin respectively. Approximately 10 mL of 0.5% plain Marcaine were then used to achieve local anesthesia above the surgical area. Sterile dressing was applied. The patient was then transferred from the OR to the recovery room. Patient understands no guarantees or warranties were given. Patient may need further amputation if not responsive. Job#: [id number] [place]
[2017-08-23] MEDS ORDERED: LACTULOSE SYRUP 20 GM/30 ML UDC PO ONE (10:15)
[2017-08-23] MEDS ORDERED: SOD POLYSTYRENE SULFONATE SUSP 15 GM/60 ML BTL PO ONE (10:15)
[2017-08-23] MEDS: LISINOPRIL 20 MG TAB PO SCH (10:19)
[2017-08-23] MEDS: CYCLOBENZAPRINE HCL 10 MG TAB PO SCH ×2 (10:19→17:07)
[2017-08-23] MEDS: HYDROXYZINE HCL 25 MG TAB PO SCH ×4 (10:19→20:46)
[2017-08-23] MEDS: HYDRALAZINE HCL 100 MG TABLET PO SCH ×3 (10:19→20:46)
[2017-08-23] MEDS: SERTRALINE HCL 100 MG TAB PO SCH (10:19)
[2017-08-23] MEDS: GABAPENTIN 100 MG CAP PO SCH ×2 (10:19→20:46)
[2017-08-23] MEDS: CEFEPIME HCL 1 GM VIAL IV SCH (10:19)
[2017-08-23] MEDS: VANCOMYCIN 1GM/NS 250 ML 250 ML IV SCH (10:20)
[2017-08-23] MEDS: MORPHINE SULFATE 2 MG/ML SYR IV PRN ×2 (10:20→21:20)
[2017-08-23] MEDS ORDERED: SODIUM CHLORIDE 0.9% 250ML 250 ML ONE (10:23)
--- NOTE | 2017-08-23 11:35 | Progress Note ---
DATE: August 23, 2017 CARDIOLOGY PROGRESS NOTE SUBJECTIVE: Patient denies chest pain or shortness of breath. He is status post amputation of the left great toe today. OBJECTIVE VITAL SIGNS: Temperature 96.9 degrees, pulse 111, respiratory rate 20, blood pressure 147/63, oxygen saturation 99% on room air. GENERAL: Awake, alert, in no acute distress. LUNGS: Clear to auscultation bilaterally. No wheezes or crackles. CARDIOVASCULAR: Normal rate, regular rhythm. No murmur. Normal S1 and S2. ABDOMEN: Soft, nontender. EXTREMITIES: No edema. Status post right TMA. Left foot with dressing post procedure. CARDIAC MEDICATIONS 1. Hydralazine 100 mg p.o. t.i.d. 2. Lisinopril 20 mg p.o. daily. 3. Atorvastatin 40 mg p.o. nightly. 4. Plavix 75 mg p.o. daily. 5. Aspirin 81 mg p.o. daily. LABS: WBC 8.26, hemoglobin 7.8, hematocrit 24.6, platelets 177. Sodium 136, potassium 5.4, chloride 101, CO2 25, BUN 31, creatinine 5.52. IMPRESSION 1. Gangrene of the left great toe. 2. Peripheral arterial disease, status post drug-eluting balloon angioplasty of the left common femoral artery with resulting single-vessel runoff to the foot via the peroneal artery. 3. Diabetes mellitus. 4. Hypertension. 5. End-stage renal disease, on hemodialysis. 6. Hyperlipidemia. RECOMMENDATIONS: Antibiotics per primary service. Wound care per podiatry. Continue current cardiac medications. Thank you for this consult. We will continue to follow. Job#: [id number]
[2017-08-23] MEDS: HYDROCODONE/APAP 10MG-325MG TAB PO SCH ×2 (11:55→17:07)
[2017-08-23] MEDS ORDERED: DEXAMETHASONE SOD PHOS INJ 4 MG/ML VIAL IV ONE (13:56)
[2017-08-23] MEDS ORDERED: ONDANSETRON HCL INJ 2 MG/ML VIAL IV ONE (13:56)
[2017-08-23] MEDS ORDERED: SEVOFLURANE INHAL SOLN 250 ML PEN BTL INH ONE (13:56)
[2017-08-23] MEDS ORDERED: PROPOFOL IV EMULSION 10 MG/ML 20 ML VIAL IV ONE (13:56)
[2017-08-23] MEDS ORDERED: LIDOCAINE HCL 2% LOCAL INJ 5 ML SDV VIAL INJ ONE (13:56)
[2017-08-23] MEDS ORDERED: EPHEDRINE SULFATE INJ 50 MG/10 ML SYR IV ONE (13:56)
[2017-08-23] MEDS ORDERED: FENTANYL CITRATE/PF 100MCG/2 ML INJ IJ ONE (14:20)
[2017-08-23] MEDS ORDERED: CLOPIDOGREL BISULFATE 75 MG TAB PO ONE (16:15)
[2017-08-23] MEDS ORDERED: ASPIRIN 81 MG CHEW TAB PO ONE (16:15)
[2017-08-23] MEDS: FAMOTIDINE 20 MG TAB PO SCH (17:06)
[2017-08-23] MEDS: ATORVASTATIN 40 MG TAB PO SCH (20:46)
[2017-08-23] MEDS: TAMSULOSIN HCL 0.4 MG CAP PO SCH (20:46)
[2017-08-23] MEDS ORDERED: CEFAZOLIN SOD 1 GM VIAL IV SCH (22:00)
[2017-08-23] MEDS ORDERED: CEFAZOLIN SOD 1 GM in WATER STERILE 10ML VIAL 10 ML IV SCH (22:00)
[2017-08-24] VITALS (8 sets, daily range): BP systolic 127–158; BP diastolic 60–75
[2017-08-24] MEDS: MORPHINE SULFATE 2 MG/ML SYR IV PRN (04:39)
[2017-08-24 05:58] LABS: BASOPHILS % 0.1 % (0.0-1.0); EOSINOPHILS # (AUTO) 0.2 (0.0-0.4); EOSINOPHILS % 2.6 % (0.0-6.0); HEMATOCRIT 24.9 % (38.2-49.6); HEMOGLOBIN 7.6 g/dL (14.0-18.0); LYMPHOCYTES # (AUTO) 0.9 (1.0-3.2); LYMPHOCYTES % 10.7 % (18.0-39.1); MEAN CORPUSCULAR HEMOGLOBIN 26.5 pg (28-32); MEAN CORPUSCULAR HGB CONC 30.5 g/dL (31-35); MEAN CORPUSCULAR VOLUME 86.8 fL (81-99); MONOCYTES % 11.1 % (4.4-11.3); NEUTROPHILS # (AUTO) 6.6 (2.1-6.9); NEUTROPHILS % 74.8 % (38.7-80.0); PLATELET COUNT 191 x10e3/uL (140-360); RED BLOOD COUNT 2.87 x10e6/uL (4.3-5.7); RED CELL DISTRIBUTION WIDTH 13.6 % (11.7-14.4)
[2017-08-24 06:18] LABS: ANION GAP 18.4 mmol/L (8-16); CALCIUM 8.1 mg/dL (8.4-10.2); CREATININE, SERUM 6.47 mg/dL (0.72-1.25); POTASSIUM 4.4 mmol/L (3.5-5.1)
[2017-08-24] MEDS: INSULIN REGULAR, HUMAN 100 UNIT/1 ML 3ML VIAL SQ SCH ×4 (07:30→20:45)
--- NOTE | 2017-08-24 07:39 | Progress Note ---
DATE: August 24, 2017 SUBJECTIVE: Patient was seen at bedside. Having some discomfort to the left lower extremity. Denies any history of fever, chills, nausea, or vomiting. OBJECTIVE VITALS: Afebrile, pulse rate 81, respirations 18, blood pressure 158/68, O2 saturation 99%. EXTREMITIES: Skin temperature is warm down to the midfoot from the midfoot distally. Toes are somewhat cool to touch when compared to contralateral side. No bloody strikethrough noted through the dressing. LABS: Noted. White blood cell count of 8.82, hemoglobin 7.6, hematocrit 24.9 with a platelet count of 191,000. ASSESSMENT: Peripheral artery disease, status post left foot surgery, multiple procedures. PLAN: Will continue IV antibiotics. Continue Plavix, aspirin and offloading. Dressing will be changed sometime this weekend. Patient understands if not responsive, may need a more proximal amputation. Job#: [id number] KESHA
--- NOTE | 2017-08-24 07:53 | Diagnostic Imaging Report ---
PROCEDURE:X-RAY LEFT FOOT, COMPLETE COMPARISON:Left foot, 3 views 08/18/2017. INDICATIONS:POST GREAT TOE AMPUTAITION FINDINGS: Postoperative changes of amputation of the distal phalanx and distal diaphysis of the proximal phalanx of the left first digit. The proximal diaphysis of the proximal phalanx of the left first digit remains. The first metatarsal phalangeal joint is intact. Subcutaneous air is present in the soft tissues of the left first digit, consistent with recent surgery. There are no fractures, dislocations, lytic or blastic lesions. The bones are well-mineralized. The soft-tissues are otherwise unremarkable. CONCLUSION: Postoperative changes of amputation of the left first digit. Dictated by: Ankit Thornton M.D. on 08/24/2017 at 7:54 Electronically approved by: Ankit Thornton M.D. on 08/24/2017 at 7:54
[2017-08-24] MEDS: FAMOTIDINE 20 MG TAB PO SCH ×2 (08:08→17:29)
[2017-08-24] MEDS: LISINOPRIL 20 MG TAB PO SCH (09:00)
[2017-08-24] MEDS ORDERED: VANCOMYCIN 1GM/NS 250 ML 250 ML IV SCH (09:00)
[2017-08-24] MEDS ORDERED: CLOPIDOGREL BISULFATE 75 MG TAB PO SCH (09:00)
[2017-08-24] MEDS: HYDRALAZINE HCL 100 MG TABLET PO SCH ×3 (09:00→20:34)
[2017-08-24] MEDS: HYDROXYZINE HCL 25 MG TAB PO SCH ×4 (09:00→20:34)
[2017-08-24] MEDS: CYCLOBENZAPRINE HCL 10 MG TAB PO SCH ×2 (09:00→17:41)
[2017-08-24] MEDS: HYDROCODONE/APAP 10MG-325MG TAB PO SCH ×2 (09:30→17:41)
[2017-08-24] MEDS ORDERED: ASPIRIN 81 MG ENTERIC COATED PO SCH (10:00)
[2017-08-24] MEDS: CEFEPIME HCL 1 GM VIAL IV SCH (14:23)
[2017-08-24] MEDS: GABAPENTIN 100 MG CAP PO SCH ×2 (14:23→20:34)
[2017-08-24] MEDS: SERTRALINE HCL 100 MG TAB PO SCH (14:23)
[2017-08-24] MEDS: EPOETIN ALFA 10000 UNIT/ML VIAL SC SCH (15:22)
--- NOTE | 2017-08-24 17:45 | Progress Note ---
DATE: August 24, 2017 CARDIOLOGY PROGRESS NOTE SUBJECTIVE: Patient denies chest pain or shortness of breath. He was seen receiving hemodialysis. OBJECTIVE VITAL SIGNS: Temperature 96.2 degrees, pulse 71, respiratory rate 18, blood pressure 148/66, oxygen saturation 98% on room air. GENERAL: Awake, alert, in no acute distress. LUNGS: Clear to auscultation bilaterally. No wheezes or crackles. CARDIOVASCULAR: Normal rate, regular rhythm. No murmur. Normal S1 and S2. ABDOMEN: Soft, nontender. EXTREMITIES: No edema. Left foot with dressing in place. CARDIAC MEDICATIONS 1. Plavix 75 mg p.o. daily. 2. Aspirin 81 mg p.o. daily. 3. Atorvastatin 40 mg p.o. nightly. 4. Lisinopril 20 mg p.o. daily. LABS: WBC 8.82, hemoglobin 7.6, hematocrit 24.9, platelets 191. Sodium 138, potassium 4.4, chloride 101, CO2 23, BUN 41, creatinine 6.47. IMPRESSION 1. Gangrene of the left great toe. 2. Peripheral arterial disease status post drug-eluting balloon angioplasty of the left common femoral artery with resulting single-vessel runoff to the left foot via the peroneal artery. 3. Diabetes mellitus. 4. Hypertension. 5. End-stage renal disease on hemodialysis. 6. Hyperlipidemia. RECOMMENDATIONS: Antibiotics per primary service. Wound care per Podiatry. Continue current cardiac medications. Blood pressure is acceptable for age. Monitor wound for healing. Thank you for this consult. We will continue to follow. Job#: [id number] EV
[2017-08-24] MEDS: ATORVASTATIN 40 MG TAB PO SCH (20:34)
[2017-08-24] MEDS: TAMSULOSIN HCL 0.4 MG CAP PO SCH (20:34)
--- NOTE | 2017-08-25 02:51 | Discharge Summary ---
PRINCIPAL DIAGNOSES: 1. Left foot great toe gangrene, status post resection. 2. Peripheral vascular disease, status post atherectomy and balloon angioplasty of the left femoral artery and secondary thrombectomy of the left femoral artery. 3. Normocytic anemia. 4. Diabetes mellitus type 2. Hemoglobin A1c 8.3, LDL 69, triglycerides 127. 5. Diabetic neuropathy. 6. Hyperlipidemia. SECONDARY DIAGNOSIS: Diabetes mellitus type 2. CHIEF COMPLAINT: Left foot great toe black color change. HISTORY OF PRESENT ILLNESS: A 72-year-old man with changes to the left foot great toe. Please refer to the H and P for further details. HOSPITAL COURSE: Patient found to have left foot great toe gangrene, underwent resection, received IV antibiotics. Also underwent vascular procedure prior to resection involving atherectomy and balloon angioplasty of the left femoral artery and thrombectomy of the left femoral artery. Patient had end-stage renal disease, received dialysis during hospitalization. Has diabetes mellitus type 2, hemoglobin A1c was 8.3, LDL 69, triglycerides 127. Patient doing better and transitioned to long-term acute care facility for continued care and management, wound care, and IV antibiotics. DISCHARGE MEDICATIONS: Per electronic medical record. FOLLOWUP: With medical team at the [facility]. SHANTAL SANTAMARIA MD Job#: [id number]
--- NOTE | 2017-08-29 15:06 | Diagnostic Imaging Report ---
Tunneled Dialysis Catheter Exchange 08/21/2017 Pre-Procedure Diagnosis: End-Stage Renal Disease Post-procedure Diagnosis:End-Stage Renal Disease Fly Worker: Aparna Mariscal Grades 9 Thru 12 Visiting Teacher: None Sedation: Moderate sedation was provided with intravenous fentanyl and Versed. Heart rate, rhythm and oxygen saturation were monitored and real-time by a dedicated interventional radiology nurse under my direct supervision. Blood pressure was monitored in 5 minute increments. 1% lidocaine was used for local anesthesia. Total sedation time: Radiation Dose: 858 cGycm2 (Dose Area Product) Fluoroscopy time: 3 minutes Estimate blood loss: <5 mL Blood administered: None Complications: None Implants/Grafts: 16 Green[place] 28 cm cuffed tunneled dialysis catheter Specimen: None Procedure: Informed consent was obtained and the patient positioned supine in the fluoroscopy suite. A timeout was performed. The left neck and chest were prepped and draped in standard fashion. The catheter cuff was freed using blunt dissection. Using an 18 gauge vascular needle the indwelling dialysis catheter was punctured and removed over a stiff Glidewire. The chest wall was re-sterilized with chlorhexidine and a glove exchange performed. An image was stored in the electronic medical record. The wire was advanced across the right atrium under fluoroscopy. A new 28 cm tip to cuff catheter catheter was advanced over the wire and positioned with the tip at the atriocaval junction/right atrium. Catheter function was confirmed with easy blood aspiration via both the red and blue ports. At the end of the procedure the catheter was flushed, packed with heparin solution, secured to the skin and a sterile dressing applied. The patient tolerated the procedure well and without immediate complication. Findings: The original indwelling catheter was short, with tips in the SVC. This was successfully exchanged for a 28 cm catheter, with good result. Impression: Left tunneled dialysis catheter exchange catheter using and fluoroscopic guidance under moderate sedation. This report was generated with voice-recognition technology. Errors in performance instructor can occur. Please interpret accordingly and contact a radiologist if there are any questions regarding the report. Signed by: Dr. Bryant Mariscal M.D. on 08/21/2017 12:42 PM
== END 2017-08-24 22:45 | DRG 270 ==
LOC: ER 12:32 → ERHOLD 15:46 → MED/SURG3 20:21
PROVIDERS: ADMIT Internal Medicine; ATTEND Internal Medicine
PROC: 5A1D70Z Performance of Urinary Filtration, Intermittent, Less than 6 Hours Per Day (ICD-10-PCS; 2017-08-18)
PROC: 047L3Z1 Dilation of Left Femoral Artery using Drug-Coated Balloon, Percutaneous Approach (ICD-10-PCS; 2017-08-21)
PROC: 04CL3ZZ Extirpation of Matter from Left Femoral Artery, Percutaneous Approach (ICD-10-PCS; 2017-08-21)
PROC: B41D1ZZ Fluoroscopy of Aorta and Bilateral Lower Extremity Arteries using Low Osmolar Contrast (ICD-10-PCS; 2017-08-21)
PROC: B41B1ZZ Fluoroscopy of Other Intra-Abdominal Arteries using Low Osmolar Contrast (ICD-10-PCS; 2017-08-21)
PROC: 0JH63XZ Insertion of Tunneled Vascular Access Device into Chest Subcutaneous Tissue and Fascia, Percutaneous Approach (ICD-10-PCS; 2017-08-21)
PROC: 02HV33Z Insertion of Infusion Device into Superior Vena Cava, Percutaneous Approach (ICD-10-PCS; 2017-08-21)
PROC: B5181ZA Fluoroscopy of Superior Vena Cava using Low Osmolar Contrast, Guidance (ICD-10-PCS; 2017-08-21)
PROC: 03PY33Z Removal of Infusion Device from Upper Artery, Percutaneous Approach (ICD-10-PCS; 2017-08-21)
PROC: 5A1D70Z Performance of Urinary Filtration, Intermittent, Less than 6 Hours Per Day (ICD-10-PCS; 2017-08-22)
PROC: 0JRR07Z Replacement of Left Foot Subcutaneous Tissue and Fascia with Autologous Tissue Substitute, Open Approach (ICD-10-PCS; 2017-08-23)
PROC: 0Y6Q0Z3 Detachment at Left 1st Toe, Low, Open Approach (ICD-10-PCS; 2017-08-23)
PROC: 30243N1 Transfusion of Nonautologous Red Blood Cells into Central Vein, Percutaneous Approach (ICD-10-PCS; 2017-08-23)
PROC: 0J9R0ZX Drainage of Left Foot Subcutaneous Tissue and Fascia, Open Approach, Diagnostic (ICD-10-PCS; principal; 2017-08-23 07:30)
PROC: 5A1D70Z Performance of Urinary Filtration, Intermittent, Less than 6 Hours Per Day (ICD-10-PCS; 2017-08-24)
DX: M79.672 Pain in left foot
CPT/HCPCS: 36140; 36415; 36580; 71045; 74470; 75716; 77001; 77002; 80048; 80053; 80061; 82550; 82553; 82948; 83036; 83605; 84484; 85007; 85025; 85027; 85610; 85730; 86704; 86706; 86707; 86850; 86900; 86920; 87040; 87071; 87075; 87205; 87340; 87350; 88305; 88311; 90962; 99284; C1751; C1769; J0690; J0692; J0720; J1100; J1644; J2001; J2250; J2270; J2370; J2405; J2543; J2997; J3370; J3410; J7030; J7050; J7070; P9016; Q4081; Q9967

== ENCOUNTER → 2017-09-13 | Day surgery (SDC) | payer OTHER ==
[~2017-09-13] MED LIST changes: +ARANESP60 MCG/0.3 IV; +ASCORBIC ACID500 MG PO; +ASPIR 8181 MG PO; +ATORVASTATIN CA20 MG PO; +BETAMETHASONE DISODIUM PHOS 6 MG/ML VIAL ONE; +BISACODYL5 MG PO; +BUPIVACAINE HCL 0.5% INJ 30 ML VIAL INJ ONE; +BUTALB-CAFF-AC1 EACH PO; +CALCIUM ACETAT667 M1 PO; +CEFAZOLIN SOD 1 GM VIAL ONE; +CEFEPIME-D1 GM/50 ML IVP; +CLINDAMYCIN HC150 MG PO; +CLONIDINE HCL0.2 MG PO; +CYCLOBENZAPRINE10 MG PO; +FAMOTIDINE20 MG PO; +FENTANYL CITRATE/PF 100MCG/2 ML INJ ONE; +FUROSEMIDE40 MG PO; +GABAPENTIN100 MG PO; +GLUCAGEN1 M1; +HYDRALAZINE HC100 MG PO; +HYDRALAZINE HCL25 MG PO; +HYDROCODON-ACE1 EAC9; +HYDROXYZINE HCL25 MG PO; +LABETOLOL IV; +LACTULOSE20 GM/30 M PO; +LISINOPRIL10 MG PO; +MORPHINE-NS2 MG/1 ML IV; +MUPIROCIN 2% OINT 22 GM TUBE ONE; +NATEGLINIDE60 MG PO; +NIFEDIPINE ER30 M1 PO; +NOVOLOG100 UNITS1 SC; +ONDANSETRON HCL INJ 2 MG/ML VIAL ONE; +ONDANSETRON4 MG/2 M2 IV; +PANTOPRAZOLE SO40 MG PO; +PHENYLEPHRINE HCL 1% 10 MG/ML VIAL ONE; +PLAVIX75 MG PO; +POLYETHYLENE GL17 GM PO; +PROPOFOL IV EMULSION 10 MG/ML 20 ML VIAL ONE; +RENVELA0.8 GM PO; +RISPERIDONE1 MG PO; +SENNA LAXATIVE1 EACH PO; +SEVOFLURANE INHAL SOLN 250 ML PEN BTL ONE; +SODIUM CHLORIDE 0.9% 500ML 500 ML ONE; +TAMSULOSIN HCL0.4 MG PO; +VANCOMYCIN HCL1 GM IV; +VENOFER100 MG/5 M IV
--- OUTSIDE RECORDS SUMMARY | 2017-09-13 05:53 | XMS REPORT | Continuity of Care Document ---
Author Author [facility] Organization [facility] Address [address] [place] [address] Phone Unavailable Care Team Providers Care Gill Box Operator Name Role Phone NATHANIEL CAMACHO MD PCP Insurance Providers Guarantor Amaury De Leon Address [address] [place] [address] Email [email or web address] Payer Medicare A & B Policy Number [id number] Subscriber's Name AletahAmaury Relationship 18 Self / Same As Patient Group Name RETIRED Effective Date 05 Payer [employer] Policy Number [id number] Subscriber's Name Aristeo De Leondro Relationship 18 Self / Same As Patient Group Number [id number] Group Name RETIRED Effective Date 02 Advance Directives Directive Response Recorded Date/Time Does the patient have an advance directive? No 08/19/17 1:59am If yes, is advance directive on file with [facility]? No 08/19/17 1:59am If not on file with [facility] will patient provide a copy? No 08/19/17 1:59am Do you have a Directive to Physician? No 08/18/17 2:33pm Do you have a Medical Power of Apiculturist? No 08/18/17 2:33pm Do you have an out of hospital Do Not Resuscitate Order? No 08/18/17 2:33pm Do you have any special needs we should be aware of? No 08/18/17 2:33pm Do you have a support person here with you today? Yes 08/18/17 2:33pm Did patient receive Notice of Privacy Practices? Yes 08/18/17 2:33pm Did patient receive patient rights and responsibilities? Yes 08/18/17 2:33pm Problems Medical Problem Onset Date Status Cellulitis Unknown Cellulitis of fifth toe of right foot Unknown Cellulitis of foot, right Unknown Cellulitis of fourth toe of right foot Unknown Cellulitis of middle toe Unknown Cellulitis of second toe of right foot Unknown ESRD (end stage renal disease) on dialysis Unknown Encounter for postoperative wound check Unknown Acute Gangrene of toe Unknown Renal failure Unknown Medications Current Home Medications Medication Dose Units Route Directions Days Qty Instructions Start Date Aspirin (Aspir 81) 81 Mg Tablet.dr Mg Oral Daily Atorvastatin Calcium 20 Mg Tablet 40 Mg Oral Bedtime 30 Tab Calcium Acetate 667 Mg Capsule Oral Daily 270 Chlorzoxazone (Lorzone) 750 Mg Tablet Clindamycin Hcl 150 Mg Capsule Oral Three Times A Day Clopidogrel Bisulfate (Plavix) 75 Mg Tablet 75 Mg Oral Daily 30 Tab Cyclobenzaprine Hcl 10 Mg Tablet 5 Mg Oral Twice A Day Gabapentin 100 Mg Capsule Oral Daily 8 Hydralazine Hcl 100 Mg Tablet 50 Mg Oral Three Times A Day 60 Hydrocodone Bit/Acetaminophen (Hydrocodon-Acetaminoph 7.5-300) 1 Each Tablet 1 Each Oral Hydrocodone Bit/Acetaminophen (Hydrocodon-Acetaminophn 10-325) 1 Each Tablet Twice A Day 28 TAKE NEED FOR PAIN Hydroxyzine Hcl 25 Mg Tablet 25 Mg Oral Four Times Daily 30 Tab Lantus 50 Units Once 7 Days Lisinopril 10 Mg Tablet 10 Mg Oral Twice A Day 30 Tab Lisinopril 20 Mg Tablet 20 Mg Oral Lovastatin 40 Mg Tablet 40 Mg Oral Nateglinide 60 Mg Tablet Mg Pe Oral Daily Sertraline Hcl 100 Mg Tablet 100 Mg Oral Tamsulosin Hcl 0.4 Mg Cap.er.24h Oral Daily 90 Past Home Medications Medication Directions Ordered Status Metformin Hcl 1,000 Mg Tablet, 1000 Mg Oral Discontinued Social History Social History Problem Response Recorded Date/Time Onset Date Status Hx Psychiatric Problems No 08/19/2017 1:59am Not Applicable Not Applicable Hx Eating Disorder No 08/19/2017 1:59am Not Applicable Not Applicable Hx Substance Use Disorder No 08/19/2017 1:59am Not Applicable Not Applicable Hx Depression Yes 08/19/2017 1:59am Not Applicable Not Applicable Hx Alcohol Use No 08/19/2017 1:59am Not Applicable Not Applicable Hx Substance Use Treatment No 08/19/2017 1:59am Not Applicable Not Applicable Hx Physical Abuse No 08/19/2017 1:59am Not Applicable Not Applicable Smoking Status Start Date Stop Date Never Smoker Hospital Discharge Instructions No hospital discharge instruction information available. Plan of Care Discharge Date 08/24/17 10:45pm Disposition HOME, SELF-CARE Prescriptions See Medication Section Functional Status Query Response Date Recorded Assistive Devices Rolling Walker August 19, 2017 1:53am Ambulation Ability Independent August 19, 2017 1:53am Toileting Ability Minimum Assistance August 24, 2017 9:52am Allergies, Adverse Reactions, Alerts No known allergies. Immunizations No immunization information available. Vital Signs Acute Vital Signs Vital Response Date/Time Temperature (Fahrenheit) 96.3 degrees F (97.6 - 99.5) 08/24/2017 8:00pm Pulse Pulse Rate (adult) 68 bpm (60 - 90) 08/24/2017 8:00pm Respiratory Rate 20 bpm (12 - 24) 08/24/2017 8:00pm Blood Pressure 131/60 mm Hg 08/24/2017 8:00pm Height 5 ft 0.8 in 08/18/2017 1:00pm Weight 176.38 lb 08/24/2017 12:00am Body Mass Index 33.5 kg/m^2 08/24/2017 12:00am Results Laboratory Results Test Name Result Units Flags Reference Collection Date/Time Result Date/ Time Comments Target Cells FEW 03/19/2017 1:44pm 03/19/2017 5:27pm Urine Color YELLOW YELLOW 03/20/2017 10:10pm 03/21/2017 11:15pm Urine Clarity CLEAR CLEAR 03/20/2017 10:10pm 03/21/2017 11:15pm Urine Specific [place] 1.010 1.010-1.025 03/20/2017 10:10pm 2016 11:15pm Urine pH 6.5 5 - 7 03/20/2017 10:10pm 03/21/2017 11:15pm Urine Leukocyte Esterase NEGATIVE NEGATIVE 03/20/2017 10:10pm 2016 11:15pm Urine Nitrite NEGATIVE NEGATIVE 03/20/2017 10:10pm 03/21/2017 11: 15pm Urine Protein 3+ H NEGATIVE 03/20/2017 10:10pm 03/21/2017 11:15pm Urine Glucose (UA) 2+ H NEGATIVE 03/20/2017 10:10pm 03/21/2017 11: 15pm Urine Ketones NEGATIVE NEGATIVE 03/20/2017 10:10pm 03/21/2017 11: 15pm Urine Urobilinogen 0.2 mg/dL 0.2 - 1 03/20/2017 10:10pm 03/21/2017 11: 15pm Urine Bilirubin NEGATIVE NEGATIVE 03/20/2017 10:10pm 03/21/2017 11: 15pm Urine Blood 1+ H NEGATIVE 03/20/2017 10:10pm 03/21/2017 11:15pm Urine WBC 0-5 /HPF 0-5 03/20/2017 10:10pm 03/21/2017 11:23pm Urine RBC 0-5 /HPF 0-5 03/20/2017 10:10pm 03/21/2017 11:23pm Urine Bacteria FEW /HPF NONE 03/20/2017 10:10pm 03/21/2017 11:23pm Urine Epithelial Cells RARE /LPF NONE 03/20/2017 10:10pm 03/21/2017 11: 23pm Urine Amorphous Sediment FEW FEW 03/20/2017 10:10pm 03/21/2017 11: 23pm Urine Random Total Protein 621.1 mg/dL H 1-14 03/20/2017 10:10pm 2016 11:53pm Urine Collection Time 24 hrs 03/20/2017 10:10pm 03/21/2017 11:07pm Urine Total Volume 1400 ml/24hr 800-2000 03/20/2017 10:10pm 03/21/2017 11:07pm Urine Creatinine 59.25 mg/dL L 63-166 03/20/2017 10:10pm 03/21/2017 11: 31pm Urine Creatinine 24 Hour 830 mg/24hr 800-2000 03/20/2017 10:10pm 2016 11:31pm Creatinine Clearance 12 ml/min L 95-145 03/20/2017 10:10pm 03/21/2017 11 :31pm Urine Total Protein 24 Hour 8695.4 mg/24hr H 50-100 03/20/2017 10:10pm 03/21/2017 11:53pm Phosphorus Level 4.3 MG/DL 2.3-4.7 03/27/2017 6:33am 03/27/2017 7:40am Magnesium Level 1.9 MG/DL 1.3-2.1 03/27/2017 6:33am 03/27/2017 7:40am Iron Level 38 ug/dL L 65-175 03/28/2017 6:30am 03/28/2017 7:18am Total Iron Binding Capacity 216 ug/dL L 261-478 03/28/2017 6:30am 2016 7:18am Percent Iron Saturation 18 % 15-50 03/28/2017 6:30am 03/28/2017 7:18am Transferrin 154 mg/dL L 174-364 03/28/2017 6:30am 03/28/2017 7:18am Ferritin 100.29 ng/mL 21.81-274.66 03/28/2017 6:30am 03/28/2017 7:29am Hepatitis A IgM Antibody Negative 03/23/2017 9:30am 03/26/2017 10: 47am Hepatitis B Surface Antigen Negative 03/23/2017 9:30am 03/26/2017 10:47am Hepatitis B Core IgM Antibody Negative 03/23/2017 9:30am 2016 10:47am Hepatitis C Antibody <0.1 03/23/2017 9:30am 03/26/2017 10:47am Reference Range:0.0 - 0.9 s/co ratio Negative: < 0.8 Indeterminate: 0.8 - 0.9 Positive: > 0.9 The CDC recommends that a positive HCV antibody result be followed up with a HCV Nucleic Acid Amplification test ([id number]) Testing performed by: [facility] [id number] Dir: Ryder Boone MD Stool Occult Blood POSITIVE H NEGATIVE 03/25/2017 5:50am 03/25/2017 7: 26am White Blood Count 8.82 x10e3/uL 4.8-10.8 08/24/2017 5:08/24/2017 6 :07am Red Blood Count 2.87 x10e6/uL L 4.3-5.7 08/24/2017 5:08/24/2017 6: 07am Hemoglobin 7.6 g/dL L 14.0-18.0 08/24/2017 5:08/24/2017 6:07am Hematocrit 24.9 % L 38.2-49.6 08/24/2017 5:08/24/2017 6:07am Mean Corpuscular Volume 86.8 fL # 81-99 08/24/2017 5:08/24/2017 6: 07am Mean Corpuscular Hemoglobin 26.5 pg L 28-32 08/24/2017 5:2017 6:07am Mean Corpuscular Hemoglobin Concent 30.5 g/dL L 31-35 08/24/2017 5:08/24/2017 6:07am Red Cell Distribution Width 13.6 % 11.7-14.4 08/24/2017 5:2017 6:07am Platelet Count 191 x10e3/uL 140-360 08/24/2017 5:08/24/2017 6: 07am Neutrophils (%) (Auto) 74.8 % 38.7-80.0 08/24/2017 5:08/24/2017 6: 07am Lymphocytes (%) (Auto) 10.7 % L 18.0-39.1 08/24/2017 5:08/24/2017 6 :07am Monocytes (%) (Auto) 11.1 % 4.4-11.3 08/24/2017 5:08/24/2017 6: 07am Eosinophils (%) (Auto) 2.6 % 0.0-6.0 08/24/2017 5:08/24/2017 6: 07am Basophils (%) (Auto) 0.1 % 0.0-1.0 08/24/2017 5:08/24/2017 6:07am IM GRANULOCYTES % 0.7 % 0.0-1.0 08/24/2017 5:15am 08/24/2017 6:07am Neutrophils # (Auto) 6.6 2.1-6.9 08/24/2017 5:1508/24/2017 6:07am Lymphocytes # (Auto) 0.9 L 1.0-3.2 08/24/2017 5:1508/24/2017 6: 07am Monocytes # (Auto) 1.0 H 0.2-0.8 08/24/2017 5:1508/24/2017 6:07am Eosinophils # (Auto) 0.2 0.0-0.4 08/24/2017 5:1508/24/2017 6:07am Basophils # (Auto) 0.0 0.0-0.1 08/24/2017 5:08/24/2017 6:07am Absolute Immature Granulocyte (auto 0.06 x10e3/uL 0-0.1 08/24/2017 5: 1508/24/2017 6:07am Differential Total Cells Counted 100 08/23/2017 6:40am 08/23/2017 9 :34am Neutrophils % (Manual) 81 % H 40-74 08/23/2017 6:40am 08/23/2017 9:34am Lymphocytes % (Manual) 4 % L 19-48 08/23/2017 6:40am 08/23/2017 9:34am Monocytes % (Manual) 9 % 3.4-9.0 08/23/2017 6:40am 08/23/2017 9:34am Eosinophils % (Manual) 3 % 0-7 08/23/2017 6:40am 08/23/2017 9:34am Basophils % (Manual) 1 % 0-1.5 08/23/2017 6:40am 08/23/2017 9:34am Metamyelocytes % 1 % H 0-0 08/23/2017 6:40am 08/23/2017 9:34am Myelocytes % 1 % H 0-0 08/22/2017 7:03am 08/22/2017 9:29am Reactive Lymphocytes 1 08/23/2017 6:40am 08/23/2017 9:34am Platelet Estimate ADEQUATE 08/23/2017 6:40am 08/23/2017 9:34am Platelet Morphology Comment FEW LARGE 08/23/2017 6:40am 08/23/2017 9:34am Hypochromasia SLIGHT 08/23/2017 6:40am 08/23/2017 9:34am Poikilocytosis SLIGHT 08/23/2017 6:40am 08/23/2017 9:34am Anisocytosis SLIGHT 08/23/2017 6:40am 08/23/2017 9:34am Red Cell Morphology Comment NORMAL 08/23/2017 6:40am 08/23/2017 9: 34am Prothrombin Time 13.8 seconds 11.9-14.5 08/22/2017 7:03am 08/22/2017 11 :27am Prothromb Time International Ratio 1.15 08/22/2017 7:03am 2017 11:27am Oral Anticoagulant Therapy INR Values: 1. Low Intensity Therapy 1.5 - 2.0 2. Moderate Intensity Therapy 2.0 - 3.0 3. High Intensity Therapy(1) 2.5 - 3.5 4. High Intensity Therapy(2) 3.0 - 4.0 5. Panic Value INR > 5.0 Activated Partial Thromboplast Time 34.6 seconds 23.8-35.5 08/22/2017 7: 03am 08/22/2017 11:34am Sodium Level 138 mmol/L 136-145 08/24/2017 5:1508/24/2017 6:22am Potassium Level 4.4 mmol/L 3.5-5.1 08/24/2017 5:1508/24/2017 6:22am Chloride Level 101 mmol/L 98-107 08/24/2017 5:1508/24/2017 6:22am Carbon Dioxide Level 23 mmol/L 22-08/24/2017 5:15am 08/24/2017 6: 22am Anion Gap 18.4 mmol/L H 8-16 08/24/2017 5:15am 08/24/2017 6:22am Blood Urea Nitrogen 41 mg/dL H 7-08/24/2017 5:15am 08/24/2017 6:22am Creatinine 6.47 mg/dL H 0.72-1.25 08/24/2017 5:15am 08/24/2017 6:22am BUN/Creatinine Ratio 6 6-25 08/24/2017 5:1508/24/2017 6:22am Estimat Glomerular Filtration Rate 8 ML/MIN L 60- 08/24/2017 5:15am 07/2017 6:22am Ranges were taken from the National Kidney Disease Education Program and the National Kidney Foundation literature. Reference ranges: 60 or greater: Normal 16-59 (for 3 consecutive months): Chronic kidney disease 15 or less: Kidney failure Glucose Level 163 mg/dL H 74-118 08/24/2017 5:15am 08/24/2017 6:22am Calcium Level 8.1 mg/dL L 8.4-10.2 08/24/2017 5:1508/24/2017 6:22am Bedside Glucose 211 mg/dL H 70-120 08/24/2017 7:22pm 08/24/2017 8:17pm Meter ID: [id number] Hemoglobin A1c Percent 8.3 % H 4.0-7.0 08/19/2017 7:3008/19/2017 11: 42am Lactic Acid Level 7.9 MG/DL 4.5-19.8 08/18/2017 2:05pm 08/18/2017 2: 37pm Total Bilirubin 0.4 mg/dL 0.2-1.2 08/19/2017 7:3008/19/2017 8:32am Aspartate Amino Transf (AST/SGOT) 7 IU/L 5-34 08/19/2017 7:302017 8:32am Alanine Aminotransferase (ALT/SGPT) < 6 IU/L 0-55 08/19/2017 7:30 8:32am Total Protein 7.4 g/dL 6.5-8.1 08/19/2017 7:3008/19/2017 8:32am Albumin 2.9 g/dL L 3.5-5.0 08/19/2017 7:3008/19/2017 8:32am Globulin 4.5 g/dL H 2.3-3.5 08/19/2017 7:3008/19/2017 8:32am Albumin/Globulin Ratio 0.6 L 0.8-2.0 08/19/2017 7:3008/19/2017 8: 32am Alkaline Phosphatase 84 IU/L 40-150 08/19/2017 7:3008/19/2017 8: 32am Triglycerides Level 127 MG/DL 0-149 08/19/2017 7:30am 08/19/2017 8: 32am Cholesterol Level 129 MD/DL 0-199 08/19/2017 7:30am 08/19/2017 8:32am Less than 200 mg/dL Low Risk 201 - 239 mg/dL Borderline Risk 240 mg/dl and greater High Risk LDL Cholesterol 69 MG/DL 60-130 08/19/2017 7:30am 08/19/2017 8:32am HDL Cholesterol 35 MG/DL L 40-60 08/19/2017 7:30am 08/19/2017 8:32am Cholesterol/HDL Ratio 3.7 L 3.9-4.7 08/19/2017 7:30am 08/19/2017 8: 32am Creatine Kinase 30 IU/L 30-200 08/19/2017 7:30am 08/19/2017 9:05am Creatine Kinase MB 1.30 ng/mL 0-5.0 08/19/2017 7:08/19/2017 9: 12am Troponin I 0.002 ng/mL 0-0.300 08/19/2017 7:30am 08/19/2017 9:12am Hepatitis B Surface Antibody, Quant <3.1 mIU/mL L Immunity>9.9 2017 10:20am 08/21/2017 7:51am Status of Immunity Anti- HBs Level Inconsistent with Immunity 0.0 - 9.9 Consistent with Immunity >9.9 Hepatitis Be Antibody Negative Negative 08/19/2017 10:20am 2017 1:26pm Performed at: - [facility] [id number] Administrative Fellow: Sarthak Mariscal MD, Phone: [phone] Hepatitis Be Antigen Negative Negative 08/19/2017 10:20am 08/21/2017 7:50am Hepatitis B Core Total Antibody Negative Negative 08/19/2017 10:20am 08/21/2017 7:51am Performed at: - [facility] [id number] Administrative Fellow: Ryder Boone MD, Phone: [phone] Microbiology Results Procedure Source Organism/Result Collection Date/Time Result Date/Time Result Status Blood Culture Blood NO GROWTH AFTER 5 DAYS, FINAL REPORT 08/18/2017 1:25pm 08/23/2017 1:38pm Final Procedures Procedure Status Date Provider(s) INSERTION OF INFUSION DEV INTO SUP VENA CAVA, PERC APPROACH Completed GARRICK MARISCAL MD DETACHMENT AT RIGHT FOOT, PARTIAL 1ST RAY, OPEN APPROACH Completed 03/30/17 ALIA FENTON DPM DILATION OF R FEM ART WITH DRUG-ELUT, PERC APPROACH Completed 03/25/17 AMY MOODY MD TRANSFER RIGHT LOWER LEG SKIN, EXTERNAL APPROACH Completed 03/30/17 ALIA FENTON DPM DIVISION OF RIGHT LOWER LEG TENDON, PERCUTANEOUS APPROACH Completed 03/30/17 ALIA FENTON DPM DILATION OF R POST TIB ART WITH DRUG-ELUT, PERC APPROACH Completed 03/25/17 AMY MOODY MD EXTIRPATION OF MATTER FROM R FEM ART, PERC APPROACH Completed 03/25/17 AMY MOODY MD EXTIRPATION OF MATTER FROM R POST TIB ART, PERC APPROACH Completed 03/25/17 AMY MOODY MD DETACHMENT AT RIGHT FOOT, PARTIAL 2ND RAY, OPEN APPROACH Completed 03/30/17 ALIA FENTON DPM DETACHMENT AT RIGHT FOOT, PARTIAL 3RD RAY, OPEN APPROACH Completed 03/30/17 ALIA FENTON DPM DETACHMENT AT RIGHT FOOT, PARTIAL 4TH RAY, OPEN APPROACH Completed 03/30/17 ALIA FENTON DPM DETACHMENT AT RIGHT FOOT, PARTIAL 5TH RAY, OPEN APPROACH Completed 03/30/17 ALIA FENTON DPM ULTRASONOGRAPHY OF SUPERIOR VENA CAVA, GUIDANCE Completed 03/23/17 GARRICK MARISCAL MD PLAIN RADIOGRAPHY OF AORTA, BI LE ART USING L OSM CONTRAST Completed AMY MOODY MD DRAINAGE OF R METATARSOPHAL JT, OPEN APPROACH, DIAGN Completed 03/30/17 ALIA FENTON DPM TRANSFUSE NONAUT RED BLOOD CELLS IN PERIPH VEIN, PERC Completed 03/20/17 JOSEMANUEL CORTES PERFORMANCE OF URINARY FILTRATION, <6 HRS/DAY Completed 03/24/17 IZABELLA DYER MD X-ray of chest, two views Active 03/19/17 GUERDA ROQUE MD Ultrasound, renal Active 03/20/17 JOSEMANUEL CORTES Encounters Encounter Location Arrival/Admit Date Discharge/Depart Date Attending Provider Discharged Inpatient [facility] 08/18/17 3:46pm 08/24/17 10:45pm SHANTAL SANTAMARIA MD Departed Emergency Room [facility] 04/29/17 12:17pm 04/29 5:26pm HOLLY DAMIAN MD Discharged Inpatient [facility] 03/19/17 7:49pm 03/31/17 8:02pm ROSALIO HENLEY MD
[2017-09-13 07:26] LABS: ANION GAP 17.4 mmol/L (8-16); CALCIUM 8.6 mg/dL (8.4-10.2); CREATININE, SERUM 5.16 mg/dL (0.72-1.25); POTASSIUM 4.4 mmol/L (3.5-5.1)
--- NOTE | 2017-09-13 09:17 | Operative Report ---
DATE OF PROCEDURE: September 13, 2017 PREOPERATIVE DIAGNOSES 1. Gangrene with abscess, left foot. 2. Equinus deformity, left foot. 3. Cellulitis, left foot. POSTOPERATIVE DIAGNOSES 1. Gangrene with abscess, left foot. 2. Equinus deformity, left foot. 3. Cellulitis, left foot. OPERATIVE PROCEDURES 1. Incision and drainage of abscess, left foot. 2. Transmetatarsal amputation, left foot. 3. Achilles tendon lengthening, left foot. 4. Rotational flap closure, left foot. 5. Application of posterior splint, left foot. ANESTHESIA: General. HEMOSTASIS: None. PROCEDURE IN DETAIL: Patient was taken into the operating room and placed on the operating table in the supine position. Following induction of general anesthesia by the anesthesiologist, the left foot was then prepped and draped in the usual aseptic manner. Following the following procedure was then performed: PROCEDURE #1: I and D of abscess, left foot. Attention was directed to the dorsal aspect of the 1st metatarsal where a curvilinear incision was performed overlying the necrotic tissue. Incision was deepened down to bone. Abscess was encountered and cultured for aerobic and anaerobic growth. Necrotic tissue was encountered approximately 1 inch proximal to the incision. At this time, a transmetatarsal amputation was decided to be performed. PROCEDURE #2: Transmetatarsal amputation. A racquet-shaped incision was performed along the metatarsals 1-5. Incision was then deepened via sharp and blunt dissection down to the level of bone preserving the metatarsal parabola utilizing an oscillating saw. Metatarsals 1-5 were cut [id number]. The forefoot was then meticulously dissected and sent for pathological analysis. At this point, all bleeders and pumpers were ligated or bovied as necessary. The areas were then copiously flushed with sterile antibiotic solution and suctioned. PROCEDURE #3: Achilles tendon lengthening, left foot. Attention was then directed to the posterior aspect of left leg where 3 stab incisions were performed, the most distal 2 cm proximal to the insertion site. The middle and more proximal stab incision midline through the tendon 2 cm apart. Utilizing an 11 blade, the most proximal and more most distal stab incision was performed midline through the tendon and exited medially. The middle stab incision was exited midline through the tendon and exited laterally. At this point, the foot was dorsiflexed. The Achilles tendon was felt to lengthen. The foot was dorsiflexed at 90 degrees with respect to the leg. PROCEDURE #4: Rotational flap closure. Attention was then redirected back to the right forefoot aspect of the left foot. After the hemostasis was achieved, once again the areas were then copiously flushed with sterile antibiotic solution and suctioned. Secondary to the tightness of the skin, a rotational flap was performed. The incision was deepened more medial plantarly. A lateral incision was incised dorsal laterally creating a plantar flap to allow for closure with minimal skin tension. The flap was then reapproximated utilizing 2-0 Vicryl and 3-0 nylon. Approximately, 25 mL of 0.5% plain Marcaine was then used to achieve local anesthesia to the above-mentioned surgical area. Sterile dressing was applied. PROCEDURE #5: Application of posterior splint. A properly placed posterior splint was then applied keeping the foot at 90 degrees with respect to the leg to try to prevent any type of postop complications. Patient was then transferred from the OR r to the recovery room with vital signs stable and neurovascular status intact. No intraoperative complications were encountered. Blood loss from the surgery was less than 100 mL. Patient will be transferred back to [facility] [place] when okay and stable per anesthesia. The patient also understands that no warranties or guarantees were given. If not responsive, may need a more proximal amputation, which may even include a below the knee or above-knee amputation. Job#: [id number] OR
--- NOTE | 2017-09-13 09:23 | Diagnostic Imaging Report ---
PROCEDURE:X-RAY LEFT FOOT, TWO VIEWS COMPARISON:None. INDICATIONS:POST OP FOOT FINDINGS: See conclusion. CONCLUSION: AP and lateral post-operative views of the left foot with overlying bandage material show post-surgical changes of a a proximal transmetatarsal amputation. There is surrounding soft-tissue swelling consistent with recent surgery. Please refer to performing physician's notes for full details of this procedure. Juma Howe D.O. Dictated by: Juma Howe D.O. on 09/13/2017 at 9:25 Electronically approved by: Juma Howe D.O. on 09/13/2017 at 9:25
== END | disposition home or self-care (01) ==
LOC: OR 05:51
PROVIDERS: ATTEND Podiatrist Foot Surgery
DX: E11.52 Type 2 diabetes mellitus with diabetic peripheral angiopathy with gangrene (principal); I96 Gangrene, not elsewhere classified; Z79.4 Long term (current) use of insulin; L02.612 Cutaneous abscess of left foot; L03.116 Cellulitis of left lower limb; M21.6X2 Other acquired deformities of left foot; I10 Essential (primary) hypertension; K21.9 Gastro-esophageal reflux disease without esophagitis; I48.91 Unspecified atrial fibrillation; Z01.810 Encounter for preprocedural cardiovascular examination; Z01.812 Encounter for preprocedural laboratory examination
CPT/HCPCS: 27685; 28805; 36415; 73620; 80048; 82948; 87071; 87075; 87186; 87205; 88307; 88311; 93005; J0690; J0720; J2370; J2405; J7040; 88305

== ENCOUNTER → 2017-10-09 | Day surgery (SDC) | payer MEDICARE, BC ==
[2017-10-09] VITALS (11 sets, daily range): BP systolic 151–198; BP diastolic 61–104
[~2017-10-09] VITALS: Ht 172.7 cm; Wt 79.8 kg
[~2017-10-09] MED LIST changes: +ALPRAZOLAM 0.5 MG TAB ONE; +ASPIRIN81 MG PO; -BETAMETHASONE DISODIUM PHOS 6 MG/ML VIAL ONE; -BUPIVACAINE HCL 0.5% INJ 30 ML VIAL INJ ONE; -CEFAZOLIN SOD 1 GM VIAL ONE; +CLOPIDOGREL75 MG PO; +DILAUDID2 MG PO; +DIPHENHYDRAMINE HCL 25 MG CAP ONE; +FLOMAX0.4 MG PO; +HEPARIN SO5000 UNIT/ SQ; +HEPARIN SOD (PORCINE) 1000 UNIT/ML 30ML ONE; +HEPARIN SOD/SOD CHLORIDE 2,000 ML ONE; +HYDRALAZINE HCL 20 MG/ML VIAL ONE; +IOPAMIDOL 300MG/ML 100 ML INFUS..BTL IV ONE; +LEVEMIR100 UNIT/1 SQ; +LIDOCAINE HCL 2% LOCAL 20 ML VIAL ONE; +MELATONIN3 MG PO; +MIDAZOLAM HCL 2 MG/2 ML VIAL ONE; -MUPIROCIN 2% OINT 22 GM TUBE ONE; +NITROGLYCERIN/D5W 200 MCG/ML 250 ML ONE; -ONDANSETRON HCL INJ 2 MG/ML VIAL ONE; +PERI COLACE PO; -PHENYLEPHRINE HCL 1% 10 MG/ML VIAL ONE; +PRASUGREL 10 MG TAB ONE; -PROPOFOL IV EMULSION 10 MG/ML 20 ML VIAL ONE; -SEVOFLURANE INHAL SOLN 250 ML PEN BTL ONE; +SODIUM CHLORIDE 0.9% 1000ML 1,000 ML ONE; -SODIUM CHLORIDE 0.9% 500ML 500 ML ONE; +VERAPAMIL HCL 2.5 MG/ML 2 ML VIAL ONE; +VISTARIL25 MG PO; +ZINC SULFATE220 MG PO; +phoslo PEG
[2017-10-09 10:05] LABS: BASOPHILS % 0.4 % (0.0-1.0); EOSINOPHILS # (AUTO) 0.9 (0.0-0.4); EOSINOPHILS % 8.4 % (0.0-6.0); HEMOGLOBIN 8.3 g/dL (14.0-18.0); LYMPHOCYTES # (AUTO) 1.1 (1.0-3.2); LYMPHOCYTES % 10.3 % (18.0-39.1); MEAN CORPUSCULAR HEMOGLOBIN 28.5 pg (28-32); MEAN CORPUSCULAR HGB CONC 31.9 g/dL (31-35); MEAN CORPUSCULAR VOLUME 89.3 fL (81-99); MONOCYTES % 9.3 % (4.4-11.3); NEUTROPHILS # (AUTO) 7.2 (2.1-6.9); NEUTROPHILS % 70.7 % (38.7-80.0); PLATELET COUNT 178 x10e3/uL (140-360); RED BLOOD COUNT 2.91 x10e6/uL (4.3-5.7); RED CELL DISTRIBUTION WIDTH 15.3 % (11.7-14.4)
[2017-10-09 10:24] LABS: ALBUMIN 2.6 g/dL (3.5-5.0); ALBUMIN/GLOBULIN RATIO 0.7 (0.8-2.0); ANION GAP 18.4 mmol/L (8-16); CALCIUM 8.3 mg/dL (8.4-10.2); CREATININE, SERUM 8.18 mg/dL (0.72-1.25)
[2017-10-09 10:28] LABS: POTASSIUM 6.4 mmol/L (3.5-5.1)
--- NOTE | 2017-10-09 16:06 | Operative Report ---
DATE OF PROCEDURE: October 09, 2017 INDICATIONS: Peripheral arterial disease ulceration of both lower extremities. PROCEDURES PERFORMED 1. Abdominal aorta catheter placement abdominal aortogram. 2. Bilateral lower extremity angiograms. 3. Selective placement of catheter from the left femoral artery to right superficial femoral artery. 4. Additional 3rd-order catheter placement left femoral to the right peroneal artery. 5. Atherectomy and angioplasty of the right peroneal artery. 6. Atherectomy and drug-coated balloon angioplasty with secondary thrombectomy of the right superficial femoral artery. 7. Deployment left groin MYNX closure device. COMPLICATIONS: None. RECOMMENDATIONS: Aggressive medical therapy including wound care. Access obtained in the left femoral artery. A 6-Urdu sheath was placed. Abdominal aortogram demonstrated mild disease in the abdominal aorta and iliacs bilaterally. Right femoral artery is occluded and midportion distal vessel could not be visualized. The catheter was then advanced in the right peroneal artery from the left femoral artery confirming single vessel runoff to a heavily diseased 90% to 95% stenosis peroneal artery. Anterior and posterior tibial artery was completely occluded without reconstitution. A decision was made to intervene on the right femoral artery and the right peroneal artery. The patient received 6,000 units of intra-arterial heparin. Orbital atherectomy of the peroneal and superficial femoral arteries performed. Large amounts of visible thrombus in the femoral artery required manual aspiration thrombectomy. Balloon angioplasty of the right peroneal artery at 2.5 mm balloon and then drug-coated balloon angioplasty using 6 mm balloons were performed in the right femoral artery. Excellent 1 vessel runoff to the right foot was noted. Left groin repaired using MYNX closer device. Patient transferred back to alf in stable condition. Job#: [id number] MARCELL
== END | disposition home or self-care (01) ==
LOC: CATH LAB 08:29
PROVIDERS: ATTEND Internal Medicine Interventional Cardiology
DX: I70.249 Atherosclerosis of native arteries of left leg with ulceration of unspecified site (principal); L97.929 Non-pressure chronic ulcer of unspecified part of left lower leg with unspecified severity; I70.239 Atherosclerosis of native arteries of right leg with ulceration of unspecified site; L97.919 Non-pressure chronic ulcer of unspecified part of right lower leg with unspecified severity; I70.92 Chronic total occlusion of artery of the extremities; E13.22 Other specified diabetes mellitus with diabetic chronic kidney disease; I12.0 Hypertensive chronic kidney disease with stage 5 chronic kidney disease or end stage renal disease; N18.6 End stage renal disease; E13.8 Other specified diabetes mellitus with unspecified complications; M62.59 Muscle wasting and atrophy, not elsewhere classified, multiple sites; Z79.82 Long term (current) use of aspirin; Z79.02 Long term (current) use of antithrombotics/antiplatelets; Z79.4 Long term (current) use of insulin; Z89.412 Acquired absence of left great toe
CPT/HCPCS: 36415; 37225; 37229; 80053; 85025; C1724; C1725 ×2; C1769; C1887; C2623; J0360; J1644; J2001; J2250; J7030; Q9967; 37186; 75716; 75774